=== PATIENT | female | born 1970 | race Caucasian/White ===

== ENCOUNTER 2023-05-13 10:08 | Inpatient (IN) | payer OTHER ==
--- NOTE | 2023-05-13 10:54 | ED ---
Chest Pain HPI - General Chief Complaint: Chest Pain Stated Complaint: Chest Pain Time Seen by Provider: 05/13/23 10:14 Source: patient Mode of arrival: ambulatory Limitations: no limitations - History of Present Illness Initial Comments: 52-year-old female with a past medical history significant for COPD and IV drug abuse last used 4 days ago (patient uses opioids). Patient states 3-4 days ago started to experience progressively worsening shortness of breath with associated fatigue. Today, patient was receiving a breathing treatment at [facility] when she developed acute onset of left-sided chest pain. Pain is sharp in nature and radiates to her back. After breathing treatment, patient was noted to be 93% on 4 L and sent to the ED for further evaluation. Patient denies fevers. Denies new rash. Denies abdominal pain. No other complaints. Pack-a-day smoker for the past 39 years. She was provided aspirin and nitro at [facility] which patient reports did not relieve her symptoms. - Related Data Home Medications Medication Instructions Recorded Confirmed Acetaminophen Tab [Tylenol] 650 mg PO Q4H PRN 05/13/23 05/13/23 Calcium/Magnesium/Zinc/Vitamin D 1 tab PO TID PRN 05/13/23 05/13/23 334/134/5mg Chlorpheniramine Maleate 4 mg PO Q4H PRN 05/13/23 05/13/23 [Chlor-Trimeton] Hyoscyamine Sulfate [Levsin] 0.125 mg PO QID PRN 05/13/23 05/13/23 Ibuprofen [Motrin Ib] 600 mg PO Q6H PRN 05/13/23 05/13/23 Loperamide HCl [Loperamide] 4 mg PO QID PRN 05/13/23 05/13/23 Multivitamins, Thera [Multivitamin 1 tab PO DAILY 05/13/23 05/13/23 (formulary)] Thiamine [Vitamin B-1] 100 mg PO DAILY 05/13/23 05/13/23 cloNIDine HCL [Catapres] 0.1 mg PO Q4H PRN 05/13/23 05/13/23 ondansetron HCL [Zofran] 8 mg PO Q6H PRN 05/13/23 05/13/23 traZODone HCL [Desyrel] 50 - 150 mg PO HS PRN 05/13/23 05/13/23 Allergies Allergy/AdvReac Type Severity Reaction Status Date / Time No Known Allergies Allergy Verified 05/13/23 15:00 Review of Systems ROS Statement: Those systems with pertinent positive or pertinent negative responses have been documented in the HPI. ROS Other: All systems not noted in ROS Statement are negative. Past Medical History Past Medical History: No Reported History, COPD History of Any Multi-Drug Resistant Organisms: None Reported Past Surgical History: No Surgical Hx Reported, Cholecystectomy Past Psychological History: No Psychological Hx Reported Smoking Status: Current every day smoker Past Alcohol Use History: None Reported Past Drug Use History: IV Drug Use General Exam Limitations: no limitations General appearance: alert, in no apparent distress, other (Cachectic) Neck exam: Present: normal inspection Respiratory exam: Present: other (CourseSounds bilaterally.) Cardiovascular Exam: Present: regular rate, normal rhythm GI/Abdominal exam: Present: soft Neurological exam: Present: alert, oriented X3 Skin exam: Present: warm, dry, other (No Osler nodes or Janeway lesions. Bilateral track parra.) Course Vital Signs 05/13/23 05/13/23 05/13/23 10:38 10:39 14:19 Temperature 98 F Pulse Rate 82 71 Pulse Rate [ 82 Pulse Oximetery ] Respiratory 18 18 Rate Blood Pressure 122/76 134/74 O2 Sat by Pulse 96 95 Oximetry - Reevaluation(s) Reevaluation #1: Patient noted painful nodes now located on her right hand and wrist. 05/13/23 14:27 Chest Pain MDM - MDM Was pt. sent in by a medical professional or institution (, PA, [employer]ER, urgent care, hospital, or fci...) When possible be specific @ -No Did you speak to anyone other than the patient for history (EMS, parent, family, police, friend...)? What history was obtained from this source @ -No Did you review nursing and triage notes (agree or disagree)? Why? @ -I reviewed and agree with nursing and triage notes Were old charts reviewed (outside hosp., previous admission, EMS record, old EKG, old radiological studies, urgent care reports/EKG's, fci records)? Report findings @ -No old charts were reviewed Differential Diagnosis (chest pain, altered mental status, abdominal pain women, abdominal pain men, vaginal bleeding, weakness, fever, dyspnea, syncope, headache, dizziness, GI bleed, back pain, seizure, CVA, palpatations, mental health, musculoskeletal)? @ -Differential Chest Pain: Stable Angina, Unstable Angina, STEMI, NSTEMI Aortic Dissection, Pneumothorax, Musculoskeletal, Esophageal Spasm GERD, Cholecystitis, Pancreatitis, Zoster, this is not meant to be an all-inclusive list. EKG interpreted by me (3pts min.). @ -EKG shows a sinus rhythm at [address] and T-wave changes. W[place] 130, QRS 101, QT/QTc 400/455. X-rays interpreted by me (1pt min.). @ -X-ray of the chest interpreted by me shows no acute process. CT interpreted by me (1pt min.). @ -CT chest interpreted by me shows no evidence of PE. U/S interpreted by me (1pt. min.). @ -None done What testing was considered but not performed or refused? (CT, X-rays, U/S, labs)? Why? @ -None What meds were considered but not given or refused? Why? @ -None Did you discuss the management of the patient with other professionals (professionals i.e. , PA, [employer]ER, lab, RT, psych nurse, social work professor, collar setter, teacher, budget officer, casework specialist)? Give summary @ -Case discussed with Dr. Holden, who accepts admission Was smoking cessation discussed for >3mins.? @ -No Was critical care preformed (if so, how long)? @ -No Were there social determinants of health that impacted care today? How? (Homelessness, low income, unemployed, alcoholism, drug addiction, transportation, low edu. Level, literacy, decrease access to med. care, usp, rehab)? @ -No Was there de-escalation of care discussed even if they declined (Discuss DNR or withdrawal of care, Hospice)? DNR status @ -No What co-morbidities impacted this encounter? (DM, HTN, Smoking, COPD, CAD, Cancer, CVA, ARF, Chemo, Hep., AIDS, mental health diagnosis, sleep apnea, morbid obesity)? @ -COPD, IV drug abuse Was patient admitted / discharged? Hospital course, mention meds given and route, prescriptions, significant lab abnormalities, going to OR and other pertinent info. @ -Admission 82-year-old female with a past medical history significant for IV drug abuse presenting to the ED with 2-3 days of fatigue and shortness of breath and 1 day of chest pain onset today. Laboratory studies significant for an elevated white blood cell count at 25.3, neutrophils elevated at 20.4, d-dimer elevated at 0.67, BUN 29, creatinine 0.42, lactic acid 2.4, initial troponin 0.034, second troponin 0.029, BNP 1700. Urine shows greater than 182 red blood cells. At this time, blood cultures pending. Patient will be admitted for empiric treatment of endocarditis. Consult placed to cardiology and infectious disease. Discussed plan of care with patient who is in agreement. Undiagnosed new problem with uncertain prognosis? @ -No Drug Therapy requiring intensive monitoring for toxicity (Heparin, Nitro, Insulin, Cardizem)? @ -No Were any procedures done? @ -No Diagnosis/symptom? @ -Chest pain Acute, or Chronic, or Acute on Chronic? @ -Acute Uncomplicated (without systemic symptoms) or Complicated (systemic symptoms)? @ -Uncomplicated Side effects of treatment? @ -No Exacerbation, Progression, or Severe Exacerbation? @ -No Poses a threat to life or bodily function? How? (Chest pain, [place], [place], pneumonia, PE, COPD, DKA, ARF, appy, cholecystitis, CVA, Diverticulitis, Homicidal, Suicidal, threat to staff... and all critical care pts) @ -No Disposition Clinical Impression: Chest pain Disposition: ADMITTED IP TO THIS HOSP Referrals: None,Stated [Primary Care Provider] - 1-2 days Time of Disposition: 15:55
[2023-05-13 11:20] LABS: Basophils % (A) 0 %; Eosinophils # (A) 0.1 k/uL (0-0.7); Eosinophils % (A) 0 %; Lymphocytes # (A) 3.1 k/uL (1.0-4.8); Lymphocytes % (A) 12 %; MCH 32.6 pg (25.0-35.0); MCHC 33.7 g/dL (31.0-37.0); MCV 96.7 fL (80.0-100.0); Mean Platelet Volume 8.8; Monocytes # (A) 1.3 k/uL (0-1.0); Monocytes % (A) 5 %; Neutrophils # (A) 20.4 k/uL (1.3-7.7); Neutrophils % (A) 81 %; Platelet Count 344 k/uL (150-450); RBC 5.83 m/uL (3.80-5.40); RDW 12.7 % (11.5-15.5); WBC 25.3 k/uL (3.8-10.6)
--- NOTE | 2023-05-13 11:25 | XR ---
EXAMINATION TYPE: XR chest 2V DATE OF EXAM: 05/13/2023 COMPARISON: NONE HISTORY: Shortness of breath TECHNIQUE: Frontal and lateral views of the chest are obtained. FINDINGS: Scattered senescent parenchymal changes noted. Hyperinflation compatible with COPD. No evidence for infiltrate. No evidence for atelectasis. Heart size is stable. Mediastinal structures are stable and grossly unremarkable. No evidence for hilar prominence. Degenerative changes dorsal spine. IMPRESSION: 1. No evidence for acute pulmonary disease.
[2023-05-13] MEDS ORDERED: ONDANSETRON 4 MG/2 ML VIAL IVP STA (11:57)
[2023-05-13 12:09] LABS: INR 1.1 (<1.2); Partial Thromboplastin Time 25.3 sec (22.0-30.0); Prothrombin Time 11.9 sec (10.0-12.5)
[2023-05-13 12:13] LABS: HCT 56.4 % (34.0-46.0)
[2023-05-13 12:53] LABS: ALT 17 U/L (4-34); AST 24 U/L (14-36); African American GFR (CKD) >90 (>60 ml/min/1.73 sqM); Albumin 4.4 g/dL (3.5-5.0); Alkaline Phosphatase 101 U/L (38-126); Anion Gap 16 mmol/L; Blood Urea Nitrogen 29 mg/dL (7-17); Carbon Dioxide 22 mmol/L (22-30); Chloride 102 mmol/L (98-107); Glucose 89 mg/dL (74-99); Magnesium 2.3 mg/dL (1.6-2.3); Non-African American GFR(CKD) >90 (>60 ml/min/1.73 sqM); Potassium 3.7 mmol/L (3.5-5.1); Sodium 140 mmol/L (137-145); Total Bilirubin 0.9 mg/dL (0.2-1.3); Total Protein 8.1 g/dL (6.3-8.2)
[2023-05-13 13:01] LABS: NT-Pro-B-Type Natriuretic Pept 1700 pg/mL
[2023-05-13] MEDS ORDERED: KETOROLAC 15 MG/ML 1 ML VIAL IVP STA (13:25)
[2023-05-13] MEDS ORDERED: SODIUM CHLORIDE 0.9% 1,000 ML IV STA (13:25)
[2023-05-13 13:56] LABS: Appearance,Urine Cloudy (Clear); Bilirubin,Urine Negative (Negative); Blood,Urine Small (Negative); Color,Urine Yellow; Glucose,Urine (UA) Negative (Negative); Ketones,Urine 3+ (Negative); Leukocyte Esterase,Urine Large (Negative); Mucus,Urine Many /hpf; Nitrite,Urine Negative (Negative); Protein,Urine 2+ (Negative); RBC,Urine 60 /hpf (0-5); Specific Gravity,Urine 1.034 (1.001-1.035); Squamous Epithelial Cell,Urine 4 /hpf (0-4); Urobilinogen,Urine <2.0 mg/dL (<2.0); WBC,Urine >182 /hpf (0-5)
--- NOTE | 2023-05-13 14:36 | CT ---
EXAMINATION TYPE: CT chest angio for PE DATE OF EXAM: 05/13/2023 COMPARISON: Radiograph same day HISTORY: 52 year-old female shortness of breath, elevated d-dimer, PE TECHNIQUE: Contiguous axial scanning of the chest performed with IV Contrast, patient injected with 6 5 mL of Isovue 370. Coronal/sagittal MIP reconstructions performed. CT DLP: 167.6 mGycm Automated exposure control for dose reduction was used. FINDINGS: The heart is normal size without pericardial effusion. No flattening of the interventricular septum o r reflux of contrast into the hepatic veins. Aorta normal caliber with conventional vessel branching anatomy. Mildly enlarged hilar lymph nodes measuring up to 1.4 cm. Extensive endobronchial opacification involving segmental and more distal lobar branches. Mild to moderate diffuse bronchial wall thickening. Moderate paraseptal and centrilobular emphysematous change particularly in the upper lungs. Tree-in-bud opacities left lung base. No germain finger in glove opacity is seen. No pleural effusion. Satisfactory opacification of the pulmonary arterial system Visualized upper abdomen shows thickening of the left adrenal gland without discrete nodularity. Bones: No osseous destructive process. IMPRESSION: 1. EXTENSIVE ENDOBRONCHIAL OPACIFICATION SEGMENTAL AND MORE DISTAL BRONCHI OF THE BILATERAL LOWER LOB ES. EXTENSIVE TREE-IN-BUD OPACITIES LEFT LOWER LOBE. CORRELATE FOR POSSIBLE ASPIRATION AND BRONCHIOLI TIS. THE PATIENT CAN BE FOLLOWED TO EXCLUDE ANY UNDERLYING MUCOCILIARY DYSFUNCTION. 2. COPD WITH MODERATE UPPER LUNG EMPHYSEMA. 3. SUSPECT REACTIVE BILATERAL HILAR LYMPH NODES MEASURING UP TO 1.4 CM. FOLLOW-UP CT IN 3 MONTHS TO E NSURE STABILITY/RESOLUTION. 4. NO EVIDENCE FOR PULMONARY EMBOLUS.
[2023-05-13] MEDS ORDERED: NALOXONE 0.4 MG/ML 1 ML VIAL IV PRN (16:00)
[2023-05-13] MEDS ORDERED: GENTAMICIN PER PHARMACY MISCELLANE PRN (16:10)
[2023-05-13] MEDS ORDERED: VANCOMYCIN IV PER PHARMACY 1 EACH MISC MISCELLANE PRN (16:10)
[2023-05-13] MEDS ORDERED: CIPROFLOXACIN/DEXTROSE PMX 400 MG in DEXTROSE/WATER 1 200ML.BAG IVPB STA (16:11)
[2023-05-13] MEDS ORDERED: VANCOMYCIN 750 MG in SODIUM CHLORIDE 0.9% 250 ML IVPB STA (16:12)
[2023-05-13] MEDS ORDERED: GENTAMICIN IVPB STA (16:19)
[2023-05-13] MEDS ORDERED: SODIUM CHLORIDE 0.9% IVPB STA (16:19)
[2023-05-13] MEDS: SODIUM CHLORIDE 0.9% 1,000 ML IV SCH (17:44)
[2023-05-13] MEDS: AMPICILLIN-SULBACTAM 3 GM in SODIUM CHLORIDE 0.9% 100 ML IVPB SCH (17:44)
[2023-05-13] MEDS: ACETAMINOPHEN TAB 325 MG TAB PO PRN (19:27)
[2023-05-13] MEDS ORDERED: traZODone HCL 50 MG TAB PO PRN (19:51)
[2023-05-13] MEDS: HEPARIN SODIUM,PORCINE 5,000 UNIT/ML 1 ML VIAL SQ SCH (20:28)
--- NOTE | 2023-05-13 21:53 | P.HPIM ---
History of Present Illness H&P Date: 05/13/23 Chief Complaint: Chest pain Patient is a 52-year-old female with a known history of COPD, IV drug use and currently everyday smoker was sent from [facility] due to complaints of shortness of breath and chest pain. Patient states that she has been short of breath and on and off sharp chest pain for the past 2 days. Patient was given breathing treatment and noted to have pulse ox 93% on 4 L oxygen via nasal cannula. Mainly left retrosternal and sometimes radiating to the back. She is also complaining of generalized weakness and tiredness for the past 5 days. She was given aspirin and sublingual nitro while at [facility]. Patient denies any fever. Complains of chills. Complains of nausea. No episodes of vomiting. No abdominal pain or diarrhea. No cough or sputum production. She did use last IV heroin on Thursday about 8:30 AM as per patient. She does smoke a pack a day for the past 39 years. Chest x-ray showed no evidence for acute pulmonary disease. EKG showed sinus rhythm with left atrial enlargement Laboratory data showed WBC 25.3 hemoglobin 19.0 and platelets 344. D-dimer 0.67 Lactic acid 2.4 and troponin 0.034 and 0.029 BUN 29 creatinine 0.42. Potassium 3.7. Urinalysis showed cloudy with 2+ protein 3+ ketones and large leukocyte esterase with elevated RBCs and WBCs. CTA chest showed extensive endobronchial opacification segmental and more distal bronchi of bilateral lower lobes. Extensive tree-in-bud opacities left lower lobe. Correlate for possible aspiration bronchiolitis. Patient can be ordered to exclude any underlying mucociliary dysfunction. COPD with moderate upper lung emphysema. Suspect reactive bilateral hilar lymph nodes measuring up to 1.4 cm follow-up CT in 3 months. She will stability/resolution. No evidence for PE. Review of Systems Constitutional: Patient denies any fever. Subjective chills . Generalized weakness and tiredness. Abdomen: Patient denied any nausea or vomiting or abd. pain Cardiovascular: Patient did complain of chest pain and short of breath no pal pitations. No leg swelling. Respiratory: patient denied any cough . no sputum production. No shortness of breath Neurologic: Patient denied any numbness or tingling headache. Musculoskeletal: Patient denies any complaints of joint swelling or deformity. Skin: Negative Psychiatric: Negative Endocrine: No heat or cold intolerance. No recent weight gain. Genitourinary: No dysuria or hematuria. All other 14 point ROS negative except the above Past Medical History Past Medical History: No Reported History, COPD History of Any Multi-Drug Resistant Organisms: None Reported Past Surgical History: No Surgical Hx Reported, Cholecystectomy Past Psychological History: No Psychological Hx Reported Smoking Status: Current every day smoker Past Alcohol Use History: None Reported Past Drug Use History: IV Drug Use Medications and Allergies Home Medications Medication Instructions Recorded Confirmed Type Acetaminophen Tab [Tylenol] 650 mg PO Q4H PRN 05/13/23 05/13/23 History Calcium/Magnesium/Zinc/Vitamin D 1 tab PO TID PRN 05/13/23 05/13/23 History 334/134/5mg Chlorpheniramine Maleate 4 mg PO Q4H PRN 05/13/23 05/13/23 History [Chlor-Trimeton] Hyoscyamine Sulfate [Levsin] 0.125 mg PO QID PRN 05/13/23 05/13/23 History Ibuprofen [Motrin Ib] 600 mg PO Q6H PRN 05/13/23 05/13/23 History Loperamide HCl [Loperamide] 4 mg PO QID PRN 05/13/23 05/13/23 History Multivitamins, Thera [Multivitamin 1 tab PO DAILY 05/13/23 05/13/23 History (formulary)] Thiamine [Vitamin B-1] 100 mg PO DAILY 05/13/23 05/13/23 History cloNIDine HCL [Catapres] 0.1 mg PO Q4H PRN 05/13/23 05/13/23 History ondansetron HCL [Zofran] 8 mg PO Q6H PRN 05/13/23 05/13/23 History traZODone HCL [Desyrel] 50 - 150 mg PO HS PRN 05/13/23 05/13/23 History Allergies Allergy/AdvReac Type Severity Reaction Status Date / Time No Known Allergies Allergy Verified 05/13/23 15:00 Physical Exam Vitals: Vital Signs Temp Pulse Pulse Resp BP Pulse Ox 05/13/23 19:00 84 16 136/74 97 05/13/23 14:19 71 18 134/74 95 05/13/23 10:39 98 F 82 18 122/76 96 05/13/23 10:38 82 Intake and Output 05/13/23 05/13/23 05/13/23 06:59 14:59 22:59 Other: Weight 40.823 kg PHYSICAL EXAMINATION: Patient is lying in the bed comfortably, no acute distress, awake alert and oriented.. HEENT: Normocephalic. Neck is supple. Pupils reactive. Nostrils clear. Oral cavity is moist. Neck reveals no JVD, carotid bruits, or thyromegaly. CHEST EXAMINATION: Trachea is central. Symmetrical expansion. Lung coughlin clear to auscultation and percussion. CARDIAC: Normal S1, S2 with no gallops. No murmurs ABDOMEN: Soft. Bowel sounds present. Nontender. No organomegaly. No abdominal bruits. Extremities: reveal no edema. Right forearm and right cubital skin wounds with prior IV needle markings. No purulent discharge. Tender to palpation. No clubbing or cyanosis Neurologically awake, alert, oriented x3 with well-coordinated movements. No focal deficits noted Skin: No rash or skin lesions. Psychiatric: Coperative. Nonsuicidal, anxious. Musculoskeletal: No joint swelling or deformity. Normal range of motion. Results CBC & Chem 7: 05/13/23 11:08 05/13/23 12:25 Labs: Abnormal Lab Results - Last 24 Hours (Table) 05/13/23 05/13/23 05/13/23 Range/Units 11:07 11:07 11:08 WBC 25.3 H (3.8-10.6) k/uL RBC 5.83 H (3.80-5.40) m/uL Hgb 19.0 H (11.4-16.0) gm/dL Hct 56.4 H (34.0-46.0) % Neutrophils # 20.4 H (1.3-7.7) k/uL Monocytes # 1.3 H (0-1.0) k/uL D-Dimer 0.67 H (<0.60) mg/L FEU BUN (7-17) mg/dL Creatinine (0.52-1.04) mg/dL Plasma Lactic Acid Tera 2.4 H* (0.7-2.0) mmol/L Urine Appearance (Clear) Urine Protein (Negative) Urine Ketones (Negative) Urine Blood (Negative) Ur Leukocyte Esterase (Negative) Urine RBC (0-5) /hpf Urine WBC (0-5) /hpf Urine Mucus (None) /hpf 05/13/23 05/13/23 Range/Units 12:25 13:17 WBC (3.8-10.6) k/uL RBC (3.80-5.40) m/uL Hgb (11.4-16.0) gm/dL Hct (34.0-46.0) % Neutrophils # (1.3-7.7) k/uL Monocytes # (0-1.0) k/uL D-Dimer (<0.60) mg/L FEU BUN 29 H (7-17) mg/dL Creatinine 0.42 L (0.52-1.04) mg/dL Plasma Lactic Acid Tera (0.7-2.0) mmol/L Urine Appearance Cloudy H (Clear) Urine Protein 2+ H (Negative) Urine Ketones 3+ H (Negative) Urine Blood Small H (Negative) Ur Leukocyte Esterase Large H (Negative) Urine RBC 60 H (0-5) /hpf Urine WBC >182 H (0-5) /hpf Urine Mucus Many H (None) /hpf Thrombosis Risk Factor Assmnt - DVT/VTE Prophylaxis DVT/VTE Prophylaxis: Pharmacologic Prophylaxis ordered Assessment and Plan Assessment: Chest pain and shortness of breath along with generalized weakness and tiredness. Suspect infective endocarditis with recent history of IVDU. Rule out ACS. Left lower lobe possible aspiration and bronchiolitis with extensive tree-in-bud opacities as per CTA chest. COPD Right forearm/upper extremity wounds with fibrosed veins. Possible urinary tract infection Elevated D-dimer level. CTA Heroin IV use Currently everyday smoker Moderate to severe protein calorie malnutrition DVT prophylaxis heparin subcu GI prophylaxis with Pepcid Plan: Patient will be continued on telemetry monitoring. Started antibiotics vancomycin and Unasyn and follow-up blood cultures. 2D echocardiogram was ordered. Serial EKG and troponin x3 to rule out ACS. DuoNeb inhalation as needed. Continue with IV hydration Cardiology and ID consult for further evaluation. Consult for smoking cessation and polysubstance abuse. Follow-up closely. Prognosis is guarded. Time with Patient: Greater than 30
--- NOTE | 2023-05-13 22:20 | P.CONS ---
History of Present Illness - Reason for Consult Consult date: 05/13/23 Rule out endocarditis Requesting physician: Ludin Taylor - Chief Complaint Shortness of breath and cough x few days - History of Present Illness patient is a 52-year-old female with a past medical history significant for IV drug use last use has been about 4 days ago patient has been sent to the ER from [place] for evaluation of increasing shortness of b reath that has been getting worse for the last 3 to 4 days and also has developed left-sided chest pain patient describing the pain to be sharp in nature almost 10 out of 10 in severity without any radiation with associated shortness of breath she did have mild cough but no sputum production patient complaining of nausea and vomiting but no abdominal pain or any diarrhea did have some chills but no high-grade fever patient on presentation to the hospital was afebrile patient did not have significant tachycardia hypotension or hypoxemia white count of 25.3 creatinine 0.42 liver exams are normal urine is positive patient did have a CT angiogram of the chest extensive endobronchial opacification segmental and more distal bronchi of the bilateral lower lobes correlate for possible aspiration and bronchiolitis no mention of any septic emboli patient was started on vancomycin gentamicin Cipro infectious disease was consulted with concern for possible endocarditis Review of Systems Positive point and negatives has been mentioned in the HPI, complete review of systems was performed and all other systems are negative Past Medical History Past Medical History: No Reported History, COPD History of Any Multi-Drug Resistant Organisms: None Reported Past Surgical History: No Surgical Hx Reported, Cholecystectomy Past Psychological History: No Psychological Hx Reported Smoking Status: Current every day smoker Past Alcohol Use History: None Reported Past Drug Use History: IV Drug Use Medications and Allergies Home Medications Medication Instructions Recorded Confirmed Type Acetaminophen Tab [Tylenol] 650 mg PO Q4H PRN 05/13/23 05/18/23 History Calcium/Magnesium/Zinc/Vitamin D 1 tab PO TID PRN 05/13/23 05/18/23 History 334/134/5mg Chlorpheniramine Maleate 4 mg PO Q4H PRN 05/13/23 05/18/23 History [Chlor-Trimeton] Hyoscyamine Sulfate [Levsin] 0.125 mg PO QID PRN 05/13/23 05/18/23 History Ibuprofen [Motrin Ib] 600 mg PO Q6H PRN 05/13/23 05/18/23 History Loperamide HCl [Loperamide] 4 mg PO QID PRN 05/13/23 05/18/23 History Multivitamins, Thera [Multivitamin 1 tab PO DAILY 05/13/23 05/18/23 History (formulary)] Thiamine [Vitamin B-1] 100 mg PO DAILY 05/13/23 05/18/23 History cloNIDine HCL [Catapres] 0.1 mg PO Q4H PRN 05/13/23 05/18/23 History ondansetron HCL [Zofran] 8 mg PO Q6H PRN 05/13/23 05/18/23 History traZODone HCL [Desyrel] 50 - 150 mg PO HS PRN 05/13/23 05/18/23 History Nitroglycerin Sl Tabs [Nitrostat] 0.4 mg SUBLINGUAL Q5M PRN 05/18/23 05/18/23 History ALPRAZolam [Xanax] 0.25 mg PO TID PRN #3 tab 05/21/23 Rx Amoxic-Pot Clav 875-125Mg 1 tab PO Q12HR 14 Days #28 tab 05/21/23 Rx [Augmentin 875-125] Budesonide-Formot 160-4.5 Mcg 2 puff INHALATION RT-BID 30 Days 05/21/23 Rx [Symbicort 160-4.5 Mcg Inhaler] #1 each Ipratropium/Albuter 20-100Mcg 1 puff INHALATION BID 30 Days #4 gm 05/21/23 Rx [Combivent Respimat 20-100Mcg Inhaler] Metoclopramide HCl [Reglan] 5 mg PO TID PRN #20 tablet 05/21/23 Rx Nicotine 21Mg/24Hr Patch [Habitrol] 1 patch TRANSDERM DAILY #30 patch 05/21/23 Rx Allergies Allergy/AdvReac Type Severity Reaction Status Date / Time No Known Allergies Allergy Verified 05/18/23 06:43 Physical Exam Vitals: Vital Signs Temp Pulse Pulse Resp BP Pulse Ox 05/13/23 19:00 84 16 136/74 97 05/13/23 14:19 71 18 134/74 95 05/13/23 10:39 98 F 82 18 122/76 96 05/13/23 10:38 82 Intake and Output 05/13/23 05/13/23 05/13/23 06:59 14:59 22:59 Other: Weight 40.823 kg GENERAL DESCRIPTION: Middle-aged male lying in bed, no distress. No tachypnea or accessory muscle of respiration use. HEENT: Shows Pallor , no scleral icterus. Oral mucous membrane is dry. No pharyngeal erythema or thrush NECK: Trachea central, no thyromegaly. LUNGS: Unlabored breathing. Coarse breath sounds bilaterally HEART: S1, S2, regular rate and rhythm. ABDOMEN: Soft, no tenderness , EXTREMITIES: No edema of feet. SKIN: No rash, no masses palpable. NEUROLOGICAL: The patient is awake, alert, oriented x3, mood and affect normal. Results CBC & Chem 7: 05/16/23 07:10 05/16/23 07:10 Labs: Abnormal Lab Results - Last 24 Hours (Table) 05/13/23 05/13/23 05/13/23 Range/Units 11:07 11:07 11:08 WBC 25.3 H (3.8-10.6) k/uL RBC 5.83 H (3.80-5.40) m/uL Hgb 19.0 H (11.4-16.0) gm/dL Hct 56.4 H (34.0-46.0) % Neutrophils # 20.4 H (1.3-7.7) k/uL Monocytes # 1.3 H (0-1.0) k/uL D-Dimer 0.67 H (<0.60) mg/L FEU BUN (7-17) mg/dL Creatinine (0.52-1.04) mg/dL Plasma Lactic Acid Tera 2.4 H* (0.7-2.0) mmol/L Urine Appearance (Clear) Urine Protein (Negative) Urine Ketones (Negative) Urine Blood (Negative) Ur Leukocyte Esterase (Negative) Urine RBC (0-5) /hpf Urine WBC (0-5) /hpf Urine Mucus (None) /hpf 05/13/23 05/13/23 Range/Units 12:25 13:17 WBC (3.8-10.6) k/uL RBC (3.80-5.40) m/uL Hgb (11.4-16.0) gm/dL Hct (34.0-46.0) % Neutrophils # (1.3-7.7) k/uL Monocytes # (0-1.0) k/uL D-Dimer (<0.60) mg/L FEU BUN 29 H (7-17) mg/dL Creatinine 0.42 L (0.52-1.04) mg/dL Plasma Lactic Acid Tera (0.7-2.0) mmol/L Urine Appearance Cloudy H (Clear) Urine Protein 2+ H (Negative) Urine Ketones 3+ H (Negative) Urine Blood Small H (Negative) Ur Leukocyte Esterase Large H (Negative) Urine RBC 60 H (0-5) /hpf Urine WBC >182 H (0-5) /hpf Urine Mucus Many H (None) /hpf Assessment and Plan (1) Pneumonia Status: Acute Code(s): J18.9 - PNEUMONIA, UNSPECIFIED ORGANISM SNOMED Code(s): 642381028 Plan: 1patient was in the hospital with acute left-sided chest pain also complaining of shortness of breath patient complaining of some nausea and vomiting did have significant normality on the CT angiogram of the chest with concern for possible aspiration pneumonia did not mention any septic emboli though the patient is a high risk for endocarditis because of her history of IV drug use but there was no mention of any septic emboli still endocarditis not entirely excluded 2-blood culture has been obtained we will check inflammatory markers 3-try to obtain sputum for Gram stain and culture 4-continue with the vancomycin however discontinue gentamicin and Cipro start the patient on Unasyn We will follow on clinical condition and cultures to further adjust medication if needed Thank you for this consultation we will follow the patient along with you Dictation was produced using [employer] dictation software. please excuse any grammatical, word or spelling errors. Time with Patient: Greater than 30
[2023-05-13] MEDS: FAMOTIDINE 20 MG TAB PO SCH (22:33)
[2023-05-14] MEDS ORDERED: GENTAMICIN IVPB SCH (02:00)
[2023-05-14] MEDS ORDERED: SODIUM CHLORIDE 0.9% IVPB SCH (02:00)
[2023-05-14] MEDS ORDERED: ACETAMINOPHEN TAB 325 MG TAB ONE (04:14)
[2023-05-14] MEDS ORDERED: CIPROFLOXACIN/DEXTROSE PMX 400 MG in DEXTROSE/WATER 1 200ML.BAG IVPB SCH (06:00)
[2023-05-14] MEDS: SODIUM CHLORIDE 0.9% 1,000 ML IV SCH ×2 (06:03→20:10)
[2023-05-14] MEDS: AMPICILLIN-SULBACTAM 3 GM in SODIUM CHLORIDE 0.9% 100 ML IVPB SCH ×5 (06:03→23:55)
[2023-05-14] MEDS: VANCOMYCIN 750 MG in SODIUM CHLORIDE 0.9% 250 ML IVPB SCH ×2 (08:03→20:08)
[2023-05-14 08:16] LABS: African American GFR (CKD) >90 (>60 ml/min/1.73 sqM); C Reactive Protein 5.1 mg/dL (<1.0); Non-African American GFR(CKD) >90 (>60 ml/min/1.73 sqM)
[2023-05-14] MEDS: HEPARIN SODIUM,PORCINE 5,000 UNIT/ML 1 ML VIAL SQ SCH ×2 (08:29→20:06)
[2023-05-14] MEDS: FAMOTIDINE 20 MG TAB PO SCH ×2 (08:30→20:07)
[2023-05-14] MEDS: THIAMINE 100 MG TAB PO SCH (08:30)
[2023-05-14] MEDS: MULTIVITAMINS, THERA 1 EACH TAB PO SCH (08:30)
[2023-05-14 09:15] VITALS: BMI 15.0
--- NOTE | 2023-05-14 09:46 | CA ---
Transthoracic Echo Report Name: Maribell Quintanilla Age: 52 Gender: F : 1970 Exam Date: 05/13/2023 15:00 Exam Location: [facility] Ht (in): 65 Wt (lb): 90 Ordering Physician: Ludin Taylor Attending/Referring Phys: Electrical Engineering Professor Sammie Guzman RDCS Procedure CPT: Indications: r/o endocarditis Cardiac Hx: Technical Quality: Good, Fair Contrast 1: Total Dose (mL): Contrast 2: Total Dose (mL): MEASUREMENTS (Male / Female) Normal Values 2D ECHO LV Diastolic Diameter PLAX 3.5 cm 4.2 - 5.9 / 3.9 - 5.3 cm LV Systolic Diameter PLAX 2.3 cm IVS Diastolic Thickness 1.0 cm 0.6 - 1.0 / 0.6 - 0.9 cm LVPW Diastolic Thickness 1.1 cm 0.6 - 1.0 / 0.6 - 0.9 cm LV Relative Wall Thickness 0.6 RV Internal Dim ED PLAX 2.9 cm LA Systolic Diameter LX 2.3 cm 3.0 - 4.0 / 2.7 - 3.8 cm LV Diastolic Volume MOD 4C 39.2 cm??? LV Systolic Volume MOD 4C 14.7 cm??? LV Ejection Fraction MOD 4C 62.6 % LV Cardiac Index MOD 4C 1616.8 cm???/min???m??? LV Diastolic Length 4C 7.3 cm LV Systolic Length 4C 6.4 cm LV Diastolic Volume MOD 2C 40.9 cm??? LV Systolic Volume MOD 2C 17.4 cm??? LV Ejection Fraction MOD 2C 57.5 % LV Cardiac Index MOD 2C 1550.2 cm???/min???m??? LV Diastolic Length 2C 8.1 cm LV Systolic Length 2C 6.6 cm LA Volume 27.2 cm??? 18 - 58 / 22 - 52 cm??? LA Volume Index 20.1 cm???/m??? 16 - 28 cm???/m??? M-MODE Aortic Root Diameter MM 2.5 cm MV E Point Septal Separation 0.1 cm AV Cusp Separation MM 1.9 cm DOPPLER AV Peak Velocity 154.3 cm/s AV Peak Gradient 9.5 mmHg MV Area PHT 2.6 cm??? Mitral E Point Velocity 62.1 cm/s Mitral A Point Velocity 80.4 cm/s Mitral E to A Ratio 0.8 MV Deceleration Time 297.2 ms FINDINGS Left Ventricle Left ventricular ejection fraction is estimated at 55-60 %. Small left ventricular cavity. Left ventricular wall thickness normal. Right Ventricle Normal right ventricular size. Unable to estimate the right ventricular systolic pressure. Right Atrium Normal right atrial size. Left Atrium Normal left atrial size. Mitral Valve Structurally normal mitral valve. No mitral stenosis, regurgitation or prolapse. Aortic Valve Trileaflet aortic valve. No aortic valve stenosis or regurgitation. Tricuspid Valve Structurally normal tricuspid valve. No tricuspid stenosis, regurgitation or prolapse. Pulmonic Valve Pulmonic valve not well visualized. Pericardium No pericardial effusion. Aorta Normal size aortic root and proximal ascending aorta. CONCLUSIONS Hyperdynamic LV Redundant mitral valve leaflets No intracardiac masses Previewed by: Dr. Chandana Mireles MD (Electronically Signed) Final Date: 14 May 2023 09:45
--- NOTE | 2023-05-14 09:53 | P.CRDCN ---
History of Present Illness History of present illness: HISTORY OF PRESENT ILLNESS: This is a 52-year-old female with a past medical history significant for nicotine dependence and IV drug abuse. Patient does not follow with a audit spec. We have been asked to see the patient in consultation for possible endocarditis. Patient examined at the bedside in the emergency room. The patient is currently at [facility] secondary to IV drug abuse. She reports that she last used heroin on Thursday morning. Patient was transferred to the hospital yesterday secondary to complaints of chest pain and shortness of breath. The patient states the pain is in the middle of her chest and radiates into her back. She also reports having shortness of breath. She states the pain is worse with deep inspiration. She denies any dizziness or lightheadedness. The patient was found to have leukocytosis with a white count of 25. Infectious disease was consulted and patient was placed on IV antibiotics. The patient also reports she has been having large amounts of green vaginal discharge with a foul odor for the past 3 weeks. She reports having unprotected sex. She denies any urinary symptoms. * EKG reveals sinus tachycardia with no signs of acute ischemia * Chest xray negative for acute process * Current home cardiac medications include Catapres 0.1 mg every 4 hours as needed. * Echocardiogram completed revealing ejection fraction 55-60% with no significant valvular abnormalities noted. No evidence of masses or veg etation. REVIEW OF SYSTEMS: At the time of my exam: CONSTITUTIONAL: Denies fever or chills. HEENT: Denies blurred vision, vision changes, or eye pain. Denies hemoptysis CARDIOVASCULAR: Denies chest pain. Denies orthopnea. Denies PND. Denies palpitations RESPIRATORY: Denies shortness of breath. GASTROINTESTINAL: Denies abdominal pain. Denies nausea or vomiting. HEMATOLOGIC: Denies bleeding disorders. GENITOURINARY: Denies any blood in urine. SKIN: Denies pruitis. Denies rash. PHYSICAL EXAM: VITAL SIGNS: Reviewed. GENERAL: Well-developed in no acute distress. HEENT: Head is normocephalic. Pupils are equal, round. Sclerae anicteric. Mucous membranes of the mouth are moist. Neck supple. No JVD or thyromegaly LUNGS: Respirations even and unlabored. Lungs essentially clear to auscultation bilaterally. HEART: Regular rate and rhythm. S1 and S2 heard. ABDOMEN: Soft. Nondistended. Nontender. EXTREMITIES: Normal range of motion. No clubbing or cyanosis. Peripheral pulses intact. No lower extremity edema NEUROLOGIC: Awake and alert. Oriented x 3. ASSESSMENT: Chest pain, pleuritic in nature, troponin negative 3 Leukocytosis IV drug abuse, patient last used heroin Thursday morning Nicotine dependence, patient smokes 1 pack per day Suspected STD, patient reports green vaginal discharge with foul order and recent unprotected sex PLAN: An acute coronary has been ruled out 2-D echo obtained and reviewed. No evidence of vegetation on transthoracic echo. Continue antibiotics per infectious disease No immediate plans for IFRAH. Will await results of blood cultures. Abstinence from drug use recommended Smoking cessation encouraged Further recommendations pending patient's course Nurse practitioner note has been reviewed by physician. Signing provider agrees with the documented findings, assessment, and plan of care. Past Medical History Past Medical History: No Reported History, COPD History of Any Multi-Drug Resistant Organisms: None Reported Past Surgical History: No Surgical Hx Reported, Cholecystectomy Past Psychological History: No Psychological Hx Reported Smoking Status: Current every day smoker Past Alcohol Use History: None Reported Past Drug Use History: IV Drug Use Medications and Allergies Home Medications Medication Instructions Recorded Confirmed Type Acetaminophen Tab [Tylenol] 650 mg PO Q4H PRN 05/13/23 05/13/23 History Calcium/Magnesium/Zinc/Vitamin D 1 tab PO TID PRN 05/13/23 05/13/23 History 334/134/5mg Chlorpheniramine Maleate 4 mg PO Q4H PRN 05/13/23 05/13/23 History [Chlor-Trimeton] Hyoscyamine Sulfate [Levsin] 0.125 mg PO QID PRN 05/13/23 05/13/23 History Ibuprofen [Motrin Ib] 600 mg PO Q6H PRN 05/13/23 05/13/23 History Loperamide HCl [Loperamide] 4 mg PO QID PRN 05/13/23 05/13/23 History Multivitamins, Thera [Multivitamin 1 tab PO DAILY 05/13/23 05/13/23 History (formulary)] Thiamine [Vitamin B-1] 100 mg PO DAILY 05/13/23 05/13/23 History cloNIDine HCL [Catapres] 0.1 mg PO Q4H PRN 05/13/23 05/13/23 History ondansetron HCL [Zofran] 8 mg PO Q6H PRN 05/13/23 05/13/23 History traZODone HCL [Desyrel] 50 - 150 mg PO HS PRN 05/13/23 05/13/23 History Allergies Allergy/AdvReac Type Severity Reaction Status Date / Time No Known Allergies Allergy Verified 05/13/23 15:00 Physical Exam Vitals: Vital Signs Temp Pulse Pulse Resp BP Pulse Ox 05/14/23 06:33 60 18 121/69 93 L 05/13/23 19:00 84 16 136/74 97 05/13/23 14:19 71 18 134/74 95 05/13/23 10:39 98 F 82 18 122/76 96 05/13/23 10:38 82 Results 05/13/23 11:08 05/14/23 07:04 Cardiac Enzymes 05/13/23 05/13/23 05/13/23 Range/Units 11:07 12:25 14:20 AST 24 (14-36) U/L Troponin I 0.034 0.029 (0.000-0.034) ng/mL 05/13/23 05/13/23 Range/Units 17:45 20:22 AST (14-36) U/L Troponin I 0.028 0.028 (0.000-0.034) ng/mL Coagulation 05/13/23 Range/Units 11:07 PT 11.9 (10.0-12.5) sec APTT 25.3 (22.0-30.0) sec CBC 05/13/23 Range/Units 11:08 WBC 25.3 H (3.8-10.6) k/uL RBC 5.83 H (3.80-5.40) m/uL Hgb 19.0 H (11.4-16.0) gm/dL Hct 56.4 H (34.0-46.0) % Plt Count 344 (150-450) k/uL Comprehensive Metabolic Panel 05/13/23 05/14/23 Range/Units 12:25 07:04 Sodium 140 (137-145) mmol/L Potassium 3.7 (3.5-5.1) mmol/L Chloride 102 (98-107) mmol/L Carbon Dioxide 22 (22-30) mmol/L BUN 29 H (7-17) mg/dL Creatinine 0.42 L 0.35 L (0.52-1.04) mg/dL Glucose 89 (74-99) mg/dL Calcium 10.0 (8.4-10.2) mg/dL AST 24 (14-36) U/L ALT 17 (4-34) U/L Alkaline Phosphatase 101 (38-126) U/L Total Protein 8.1 (6.3-8.2) g/dL Albumin 4.4 (3.5-5.0) g/dL Current Medications Generic Name Dose Route Start Last Admin Trade Name Freq PRN Reason Stop Dose Admin Acetaminophen 650 mg 05/13/23 16:00 05/13/23 19:27 Acetaminophen Tab 325 Mg Tab PO 650 mg Q6HR PRN Administration Mild Pain or Fever > 100.5 Albuterol/Ipratropium 3 ml 05/13/23 21:49 Ipratropium-Albuterol 3 Ml Neb INHALATION RT-QID PRN Shortness Of Breath Or Wheezing Famotidine 20 mg 05/13/23 22:00 05/13/23 22:33 Famotidine 20 Mg Tab PO 20 mg BID RICO Administration Heparin Sodium (Porcine) 5,000 unit 05/13/23 21:00 05/13/23 20:28 Heparin Sodium,Porcine 5,000 Unit/Ml 1 Ml Vial SQ Not Given Q12HR RICO Sodium Chloride 1,000 mls @ 75 mls/hr 05/13/23 16:00 05/14/23 06:03 Saline 0.9% IV Not Given .[id number] RICO Vancomycin HCl 750 mg/ Sodium 250 mls @ 125 mls/hr 05/14/23 06:00 05/14/23 08:03 Chloride IVPB 125 mls/hr Q12H RICO Administration Ampicillin Sodium/Sulbactam 100 mls @ 200 mls/hr 05/13/23 18:00 05/14/23 06:31 Sodium 3 gm/ Sodium Chloride IVPB 200 mls/hr Q6HR RICO Administration Protocol Multivitamins 1 each 05/14/23 09:00 Multivitamins, Thera 1 Each Tab PO DAILY RICO Naloxone HCl 0.2 mg 05/13/23 16:00 Naloxone 0.4 Mg/Ml 1 Ml Vial IV Q2M PRN Opioid Reversal Thiamine HCl 100 mg 05/14/23 09:00 Thiamine 100 Mg Tab PO DAILY RICO Trazodone HCl 50 mg 05/13/23 19:51 Trazodone Hcl 50 Mg Tab PO HS PRN Insomnia 05/13/23 11:08 05/14/23 07:04
[2023-05-14] MEDS: ACETAMINOPHEN TAB 325 MG TAB PO PRN ×2 (12:55→20:07)
--- NOTE | 2023-05-14 14:05 | P.PN ---
Subjective Progress Note Date: 05/14/23 Patient is a 52-year-old female with a known history of COPD, IV drug use and currently everyday smoker was sent from [place] due to complaints of shortness of breath and chest pain. Patient states that she has been short of breath and on and off sharp chest pain for the past 2 days. Patient was given breathing treatment and noted to have pulse ox 93% on 4 L oxygen via nasal cannula. Mainly left retrosternal and sometimes radiating to the back. She is also complaining of generalized weakness and tiredness for the past 5 days. She was given aspirin and sublingual nitro while at [place] re[facility]. Patient denies any fever. Complains of chills. Complains of nausea. No episodes of vomiting. No abdominal pain or diarrhea. No cough or sputum production. She did use last IV heroin on Thursday about 8:30 AM as per patient. She does smoke a pack a day for the past 39 years. Chest x-ray showed no evidence for acute pulmonary disease. EKG showed sinus rhythm with left atrial enlargement Laboratory data showed WBC 25.3 hemoglobin 19.0 and platelets 344. D-dimer 0.67 Lactic acid 2.4 and troponin 0.034 and 0.029 BUN 29 creatinine 0.42. Potassium 3.7. Urinalysis showed cloudy with 2+ protein 3+ ketones and large leukocyte esterase with elevated RBCs and WBCs. CTA chest showed extensive endobronchial opacification segmental and more distal bronchi of bilateral lower lobes. Extensive tree-in-bud opacities left lower lobe. Correlate for possible aspiration bronchiolitis. Patient can be ordered to exclude any underlying mucociliary dysfunction. COPD with moderate upper lung emphysema. Suspect reactive bilateral hilar lymph nodes measuring up to 1.4 cm follow-up CT in 3 months. She will stability/resolution. No evidence for PE. 05/14. Patient seen and examined. Patient complaining of odorous vaginal discharge, greenish colored. Patient stated that she has been having the discharge for the last 4 weeks, admits to unprotected sexual intercourse REVIEW OF SYSTEMS: CONSTITUTIONAL: No fever, complaining of generalized body aches CARDIOVASCULAR: No chest pain, no palpitations, no syncope. PULMONARY: No shortness of breath, no cough, GASTROINTESTINAL: No diarrhea, no nausea, no vomiting, no abdominal pain. NEUROLOGICAL: No headaches, no weakness, PHYSICAL EXAMINATION: GENERAL: The patient is alert and oriented x3, not in any acute distress. Well developed, well nourished. HEENT: Pupils are round and equally reacting to light. EOMI. No scleral icterus. No conjunctival pallor. Normocephalic, atraumatic. No pharyngeal erythema. No thyromegaly. CARDIOVASCULAR: S1 and S2 present. No murmurs, rubs, or gallops. PULMONARY: Chest is clear to auscultation, no wheezing or crackles. ABDOMEN: Soft, nontender, nondistended, normoactive bowel sounds. No palpable organomegaly. MUSCULOSKELETAL: No joint swelling or deformity. EXTREMITIES: No cyanosis, clubbing, or pedal edema. NEUROLOGICAL: Gross neurological examination did not reveal any focal deficits. SKIN: No rashes. Assessment and plan Chest pain and shortness of breath along with generalized weakness and tiredness. Suspect infective endocarditis with recent history of IVDU. Left lower lobe possible aspiration and bronchiolitis with extensive tree-in-bud opacities as per CTA chest. COPD Right forearm/upper extremity wounds with fibrosed veins. Possible urinary tract infection Vagina discharge Heroin IV use Currently everyday smoker Moderate to severe protein calorie malnutrition DVT prophylaxis heparin subcu GI prophylaxis with Pepcid Plan: Monitor vital signs Monitor CBC Monitor CMP Follow-up on blood cultures Echo done, showed no evidence of any vegetations Continue IV Unasyn and vancomycin DuoNeb inhalation as needed. We will check for STD with Chlamydia and Neisseria Cardiology following ID following Labs and medication were reviewed.. Continue same treatment. Continue with symptomatic treatment. Resume home medication. Monitor labs and vitals. DVT and GI prophylaxis. Further recommendations as per clinical course of the patient Dictation was produced using [employer] dictation software. please excuse any grammatical, word or spelling errors. Objective - Vital Signs Vital signs: Vital Signs Temp 98 F 05/13/23 10:39 Pulse 69 05/14/23 09:06 Resp 20 05/14/23 09:06 BP 115/57 05/14/23 09:06 Pulse Ox 97 05/14/23 09:06 FiO2 Intake & Output 05/13/23 05/14/23 05/14/23 18:59 06:59 18:59 Weight 40.823 kg 40.823 kg - Labs CBC & Chem 7: 05/13/23 11:08 05/14/23 07:04 Labs: Abnormal Lab Results - Last 24 Hours (Table) 05/13/23 05/13/23 05/13/23 Range/Units 11:07 11:07 11:08 WBC 25.3 H (3.8-10.6) k/uL RBC 5.83 H (3.80-5.40) m/uL Hgb 19.0 H (11.4-16.0) gm/dL Hct 56.4 H (34.0-46.0) % Neutrophils # 20.4 H (1.3-7.7) k/uL Monocytes # 1.3 H (0-1.0) k/uL D-Dimer 0.67 H (<0.60) mg/L FEU BUN (7-17) mg/dL Creatinine (0.52-1.04) mg/dL Plasma Lactic Acid Tera 2.4 H* (0.7-2.0) mmol/L C-Reactive Protein (<1.0) mg/dL Urine Appearance (Clear) Urine Protein (Negative) Urine Ketones (Negative) Urine Blood (Negative) Ur Leukocyte Esterase (Negative) Urine RBC (0-5) /hpf Urine WBC (0-5) /hpf Urine Mucus (None) /hpf 05/13/23 05/13/23 05/14/23 Range/Units 12:25 13:17 07:04 WBC (3.8-10.6) k/uL RBC (3.80-5.40) m/uL Hgb (11.4-16.0) gm/dL Hct (34.0-46.0) % Neutrophils # (1.3-7.7) k/uL Monocytes # (0-1.0) k/uL D-Dimer (<0.60) mg/L FEU BUN 29 H (7-17) mg/dL Creatinine 0.42 L 0.35 L (0.52-1.04) mg/dL Plasma Lactic Acid Tera (0.7-2.0) mmol/L C-Reactive Protein 5.1 H (<1.0) mg/dL Urine Appearance Cloudy H (Clear) Urine Protein 2+ H (Negative) Urine Ketones 3+ H (Negative) Urine Blood Small H (Negative) Ur Leukocyte Esterase Large H (Negative) Urine RBC 60 H (0-5) /hpf Urine WBC >182 H (0-5) /hpf Urine Mucus Many H (None) /hpf
--- NOTE | 2023-05-14 16:38 | P.PN ---
Subjective Progress Note Date: 05/14/23 Principal diagnosis: Aspiration pneumonia and question of endocarditis patient is a 52-year-old female with a past medical history significant for IV drug use last use has been about 4 days before presentation to the hospital patient has been sent to the ER from [place] for evaluation of increasing shortness of breath and chest pain CT of the chest did shows exte nsive pneumonia. On today's evaluation that is 05/14/2023, the patient denies any fever or any chills, the patient is breathing comfortably on room air and no need for supplemental oxygen , the patient chest pain and cough has decreased in intensity, patient denies abdominal pain, no nausea/vomiting and no diarrhea has been reported White count of 25.3 as of yesterday creatinine 0.35, cultures pending Objective - Vital Signs Vital signs: Vital Signs Temp 99.2 F 05/14/23 11:26 Pulse 74 05/14/23 11:26 Resp 16 05/14/23 11:26 BP 130/74 05/14/23 11:26 Pulse Ox 96 05/14/23 11:26 FiO2 Intake & Output 05/13/23 05/14/23 05/14/23 18:59 06:59 18:59 Weight 40.823 kg 40.823 kg - Exam GENERAL DESCRIPTION: Middle-aged female lying in bed in no distress RESPIRATORY SYSTEM: Unlabored breathing , decreased breath sounds at bases HEART: S1 S2 regular rate and rhythm , ABDOMEN: Soft , no tenderness EXTREMITIES: No edema feet - Labs CBC & Chem 7: 05/13/23 11:08 05/14/23 07:04 Labs: Abnormal Lab Results - Last 24 Hours (Table) 05/13/23 05/13/23 05/13/23 Range/Units 11:07 11:07 11:08 WBC 25.3 H (3.8-10.6) k/uL RBC 5.83 H (3.80-5.40) m/uL Hgb 19.0 H (11.4-16.0) gm/dL Hct 56.4 H (34.0-46.0) % Neutrophils # 20.4 H (1.3-7.7) k/uL Monocytes # 1.3 H (0-1.0) k/uL D-Dimer 0.67 H (<0.60) mg/L FEU BUN (7-17) mg/dL Creatinine (0.52-1.04) mg/dL Plasma Lactic Acid Tera 2.4 H* (0.7-2.0) mmol/L C-Reactive Protein (<1.0) mg/dL Procalcitonin (0.02-0.09) ng/mL Urine Appearance (Clear) Urine Protein (Negative) Urine Ketones (Negative) Urine Blood (Negative) Ur Leukocyte Esterase (Negative) Urine RBC (0-5) /hpf Urine WBC (0-5) /hpf Urine Mucus (None) /hpf 05/13/23 05/13/23 05/14/23 Range/Units 12:25 13:17 07:04 WBC (3.8-10.6) k/uL RBC (3.80-5.40) m/uL Hgb (11.4-16.0) gm/dL Hct (34.0-46.0) % Neutrophils # (1.3-7.7) k/uL Monocytes # (0-1.0) k/uL D-Dimer (<0.60) mg/L FEU BUN 29 H (7-17) mg/dL Creatinine 0.42 L (0.52-1.04) mg/dL Plasma Lactic Acid Tera (0.7-2.0) mmol/L C-Reactive Protein (<1.0) mg/dL Procalcitonin 0.23 H (0.02-0.09) ng/mL Urine Appearance Cloudy H (Clear) Urine Protein 2+ H (Negative) Urine Ketones 3+ H (Negative) Urine Blood Small H (Negative) Ur Leukocyte Esterase Large H (Negative) Urine RBC 60 H (0-5) /hpf Urine WBC >182 H (0-5) /hpf Urine Mucus Many H (None) /hpf 05/14/23 Range/Units 07:04 WBC (3.8-10.6) k/uL RBC (3.80-5.40) m/uL Hgb (11.4-16.0) gm/dL Hct (34.0-46.0) % Neutrophils # (1.3-7.7) k/uL Monocytes # (0-1.0) k/uL D-Dimer (<0.60) mg/L FEU BUN (7-17) mg/dL Creatinine 0.35 L (0.52-1.04) mg/dL Plasma Lactic Acid Tera (0.7-2.0) mmol/L C-Reactive Protein 5.1 H (<1.0) mg/dL Procalcitonin (0.02-0.09) ng/mL Urine Appearance (Clear) Urine Protein (Negative) Urine Ketones (Negative) Urine Blood (Negative) Ur Leukocyte Esterase (Negative) Urine RBC (0-5) /hpf Urine WBC (0-5) /hpf Urine Mucus (None) /hpf Assessment and Plan (1) Pneumonia Current Visit: Yes Status: Acute Code(s): J18.9 - PNEUMONIA, UNSPECIFIED ORGANISM SNOMED Code(s): 417914015 Plan: 1patient was in the hospital with acute left-sided chest pain also complaining of shortness of breath patient complaining of some nausea and vomiting did have significant normality on the CT angiogram of the chest with concern for possible aspiration pneumonia did not mention any septic emboli though the patient is a high risk for endocarditis because of her history of IV drug use but there was no mention of any septic emboli still endocarditis not entirely excluded 2-blood culture has been obtained which are currently pending, patient did have a CRP of 5.1 and the pro-calcitonin of 0.23 3-try to obtain sputum for Gram stain and culture 4-patient to continue with the vancomycin and Unasyn while waiting for the cultures to finalize Dictation was produced using [employer] dictation software. please excuse any grammatical, word or spelling errors. Time with Patient: Less than 30
[2023-05-14] MEDS: NICOTINE 7MG/24HR PATCH TRANSDERM SCH (18:41)
[2023-05-15] MEDS: ACETAMINOPHEN TAB 325 MG TAB PO PRN ×3 (03:53→21:26)
[2023-05-15] MEDS ORDERED: VANCOMYCIN TROUGH DUE 1 EACH MISC MISCELLANE ONE (05:00)
[2023-05-15] MEDS: AMPICILLIN-SULBACTAM 3 GM in SODIUM CHLORIDE 0.9% 100 ML IVPB SCH ×4 (05:02→23:51)
[2023-05-15] MEDS: VANCOMYCIN 750 MG in SODIUM CHLORIDE 0.9% 250 ML IVPB SCH (05:56)
[2023-05-15] MEDS ORDERED: ONDANSETRON 4 MG/2 ML VIAL IVP PRN (06:03)
[2023-05-15 06:06] LABS: African American GFR (CKD) >90 (>60 ml/min/1.73 sqM); Non-African American GFR(CKD) >90 (>60 ml/min/1.73 sqM)
[2023-05-15] MEDS: SODIUM CHLORIDE 0.9% 1,000 ML IV SCH (08:09)
[2023-05-15] MEDS: MULTIVITAMINS, THERA 1 EACH TAB PO SCH (08:10)
[2023-05-15] MEDS: HEPARIN SODIUM,PORCINE 5,000 UNIT/ML 1 ML VIAL SQ SCH ×2 (08:10→20:01)
[2023-05-15] MEDS: THIAMINE 100 MG TAB PO SCH (08:10)
[2023-05-15] MEDS: IPRATROPIUM-ALBUTEROL 3 ML NEB INHALATION PRN ×3 (08:16→15:21)
[2023-05-15] MEDS: FAMOTIDINE 20 MG TAB PO SCH ×2 (08:19→20:01)
[2023-05-15] MEDS: NICOTINE 7MG/24HR PATCH TRANSDERM SCH (08:19)
[2023-05-15 08:59] LABS: Basophils # (A) 0.05 X 10*3/uL (0.00-0.10); Basophils % (A) 0.3 %; Eosinophils # (A) 0.01 X 10*3/uL (0.04-0.35); Eosinophils % (A) 0.1 %; HCT 45.6 % (37.2-46.3); HGB 15.7 d/dL (12.0-15.0); Lymphocytes # (A) 2.52 X 10*3/uL (0.90-5.00); Lymphocytes % (A) 13.7 %; MCH 31.5 pg (27.0-32.0); MCHC 34.4 d/dL (32.0-37.0); MCV 91.6 FL (80.0-97.0); Mean Platelet Volume 11.4 FL (9.5-12.2); Monocytes # (A) 1.07 X 10*3/uL (0.20-1.00); Monocytes % (A) 5.8 %; NRBC Per 100 WBC 0 X 10*3/uL (0.00-0.01); Neutrophils # (A) 14.62 X 10*3/uL (1.80-7.70); Neutrophils % (A) 79.4 %; Platelet Count 340 X 10*3/uL (140-440); RBC 4.98 X 10*6/uL (4.10-5.20); RDW 12.8 % (11.5-14.5)
[2023-05-15 09:13] LABS: ALT 10 U/L (8-44); AST 14 U/L (13-35); Albumin 3.7 d/dL (3.8-4.9); Albumin/Globulin Ratio 1.37 Ratio (1.60-3.17); Alkaline Phosphatase 93 U/L (41-126); BUN/Creat Ratio 22.67 Ratio (12.00-20.00); Blood Urea Nitrogen 6.8 mg/dL (9.0-27.0); Calcium 8.8 mg/dL (8.7-10.3); Carbon Dioxide 24.3 mmol/L (21.6-31.8); Chloride 100 mmol/L (96-109); Globulin 2.7 d/dL (1.6-3.3); Glucose 98 mg/dL (70-110); Potassium 2.9 mmol/L (3.5-5.5); Sodium 139 mmol/L (135-145); Total Bilirubin 0.4 mg/dL (0.3-1.2); Total Protein 6.4 d/dL (6.2-8.2)
[2023-05-15] MEDS ORDERED: Potassium Replacement Protocol 1 EACH MISC MISCELLANE PRN (10:05)
[2023-05-15 10:11] LABS: Chlamydia trachomatis rRNA Not detected; Neisseria gonorrhoeae rRNA Not detected
[2023-05-15] MEDS: POTASSIUM CHLORIDE ER 20 MEQ TAB.ER PO SCH ×3 (12:32→15:13)
--- NOTE | 2023-05-15 13:03 | P.PN ---
Subjective Progress Note Date: 05/15/23 Patient is a 52-year-old female with a known history of COPD, IV drug use and currently everyday smoker was sent from [place] due to complaints of shortness of breath and chest pain. Patient states that she has been short of breath and on and off sharp chest pain for the past 2 days. Patient was given breathing treatment and noted to have pulse ox 93% on 4 L oxygen via nasal cannula. Mainly left retrosternal and sometimes radiating to the back. She is also complaining of generalized weakness and tiredness for the past 5 days. She was given aspirin and sublingual nitro while at [place] [facility]. Patient denies any fever. Complains of chills. Complains of nausea. No episodes of vomiting. No abdominal pain or diarrhea. No cough or sputum production. She did use last IV heroin on Thursday about 8:30 AM as per patient. She does smoke a pack a day for the past 39 years. Chest x-ray showed no evidence for acute pulmonary disease. EKG showed sinus rhythm with left atrial enlargement Laboratory data showed WBC 25.3 hemoglobin 19.0 and platelets 344. D-dimer 0.67 Lactic acid 2.4 and troponin 0.034 and 0.029 BUN 29 creatinine 0.42. Potassium 3.7. Urinalysis showed cloudy with 2+ protein 3+ ketones and large leukocyte esterase with elevated RBCs and WBCs. CTA chest showed extensive endobronchial opacification segmental and more distal bronchi of bilateral lower lobes. Extensive tree-in-bud opacities left lower lobe. Correlate for possible aspiration bronchiolitis. Patient can be ordered to exclude any underlying mucociliary dysfunction. COPD with moderate upper lung emphysema. Suspect reactive bilateral hilar lymph nodes measuring up to 1.4 cm follow-up CT in 3 months. She will stability/resolution. No evidence for PE. 05/14. Patient seen and examined. Patient complaining of odorous vaginal discharge, greenish colored. Patient stated that she has been having the discharge for the last 4 weeks, admits to unprotected sexual intercourse 05/15. Patient seen and examined. Potassium this morning is 2.8, and replacement ordered. No acute issues overnight. Vital signs stable REVIEW OF SYSTEMS: CONSTITUTIONAL: No fever, complaining of generalized body aches CARDIOVASCULAR: No chest pain, no palpitations, no syncope. PULMONARY: No shortness of breath, no cough, GASTROINTESTINAL: No diarrhea, no nausea, no vomiting, no abdominal pain. NEUROLOGICAL: No headaches, no weakness, PHYSICAL EXAMINATION: GENERAL: The patient is alert and oriented x3, not in any acute distress. Well developed, well nourished. HEENT: Pupils are round and equally reacting to light. EOMI. No scleral icterus. No conjunctival pallor. Normocephalic, atraumatic. No pharyngeal erythema. No thyromegaly. CARDIOVASCULAR: S1 and S2 present. No murmurs, rubs, or gallops. PULMONARY: Chest is clear to auscultation, no wheezing or crackles. ABDOMEN: Soft, nontender, nondistended, normoactive bowel sounds. No palpable organomegaly. MUSCULOSKELETAL: No joint swelling or deformity. EXTREMITIES: No cyanosis, clubbing, or pedal edema. NEUROLOGICAL: Gross neurological examination did not reveal any focal deficits. SKIN: No rashes. Assessment and plan Chest pain and shortness of breath along with generalized weakness and tiredness. Suspect infective endocarditis with recent history of IVDU. Left lower lobe possible aspiration and bronchiolitis with extensive tree-in-bud opacities as per CTA chest. COPD Right forearm/upper extremity wounds with fibrosed veins. Possible urinary tract infection Vagina discharge Heroin IV use Currently everyday smoker Moderate to severe protein calorie malnutrition Plan: Monitor vital signs Monitor CBC Monitor CMP Follow-up on blood cultures Echo done, showed no evidence of any vegetations Potassium this morning is 2.8, replacement ordered Continue IV Unasyn and vancomycin DuoNeb inhalation as needed. We will check for STD with Chlamydia and Neisseria Cardiology following ID following Labs and medication were reviewed.. Continue same treatment. Continue with sy mptomatic treatment. Resume home medication. Monitor labs and vitals. DVT and GI prophylaxis. Further recommendations as per clinical course of the patient Dictation was produced using [employer] dictation software. please excuse any grammatical, word or spelling errors. Objective - Vital Signs Vital signs: Vital Signs Temp 98.3 F 05/15/23 06:53 Pulse 77 05/15/23 08:29 Resp 16 05/15/23 06:53 BP 141/68 05/15/23 06:53 Pulse Ox 92 L 05/15/23 06:53 FiO2 Intake & Output 05/14/23 05/15/23 05/15/23 18:59 06:59 18:59 Intake Total 1850 Balance 1850 Weight 40.823 kg 42 kg Intake: Intake, IV Titration 1350 Amount Ampicillin-Sulbactam 3 gm 200 In Sodium Chloride 0.9% 100 ml @ 200 mls/hr IVPB Q6HR [facility] Rx#:[id number] Sodium Chloride 0.9% 1, 900 000 ml @ 75 mls/hr IV . [id number] [facility] Rx#:[id number] Vancomycin 750 mg In 250 Sodium Chloride 0.9% 250 ml @ 125 mls/hr IVPB Q12H [facility] Rx#:[id number] Oral 500 Other: Voiding Method Toilet Diaper # Voids 1 # Bowel Movements 1 - Labs CBC & Chem 7: 05/15/23 05:44 05/15/23 05:44 Labs: Abnormal Lab Results - Last 24 Hours (Table) 05/14/23 05/15/23 05/15/23 Range/Units 07:04 05:44 05:44 WBC 18.40 H (4.50-10.00) X 10*3/uL Hgb 15.7 H (12.0-15.0) d/dL Neutrophils # 14.62 H (1.80-7.70) X 10*3/uL Monocytes # 1.07 H (0.20-1.00) X 10*3/uL Eosinophils # 0.01 L (0.04-0.35) X 10*3/uL Potassium 2.9 L (3.5-5.5) mmol/L Anion Gap 14.70 H (4.00-12.00) mmol/L BUN 6.8 L (9.0-27.0) mg/dL Creatinine 0.3 L (0.6-1.5) mg/dL BUN/Creatinine Ratio 22.67 H (12.00-20.00) Ratio Albumin 3.7 L (3.8-4.9) d/dL Albumin/Globulin Ratio 1.37 L (1.60-3.17) Ratio Procalcitonin 0.23 H (0.02-0.09) ng/mL 05/15/23 Range/Units 05:44 WBC (4.50-10.00) X 10*3/uL Hgb (12.0-15.0) d/dL Neutrophils # (1.80-7.70) X 10*3/uL Monocytes # (0.20-1.00) X 10*3/uL Eosinophils # (0.04-0.35) X 10*3/uL Potassium (3.5-5.5) mmol/L Anion Gap (4.00-12.00) mmol/L BUN (9.0-27.0) mg/dL Creatinine 0.31 L (0.6-1.5) mg/dL BUN/Creatinine Ratio (12.00-20.00) Ratio Albumin (3.8-4.9) d/dL Albumin/Globulin Ratio (1.60-3.17) Ratio Procalcitonin (0.02-0.09) ng/mL Microbiology - Last 24 Hours (Table) 05/13/23 17:45 Blood Culture - Preliminary Blood 05/13/23 12:25 Blood Culture - Preliminary Blood
[2023-05-15] MEDS ORDERED: VANCOMYCIN 750 MG in SODIUM CHLORIDE 0.9% 250 ML IVPB SCH (14:00)
--- NOTE | 2023-05-15 16:55 | P.PN ---
Subjective Progress Note Date: 05/15/23 Principal diagnosis: Aspiration pneumonia and question of endocarditis patient is a 52-year-old female with a past medical history significant for IV drug use last use has been about 4 days before presentation to the hospital patient has been sent to the ER from [place] for evaluation of increasing shortness of breath and chest pain CT of the chest did shows exte nsive pneumonia. On today's evaluation that is 05/15/2023, the patient remains to be afebrile the patient is breathing comfortably on room air without need for supplemental oxygen, the patient denies chest pain, shortness of breath or cough, patient denies nausea/vomiting , no diarrhea and no abdominal pain White count is down to 18.40, creatinine 0.31 cultures are pending Objective - Vital Signs Vital signs: Vital Signs Temp 98.3 F 05/15/23 11:50 Pulse 71 05/15/23 11:50 Resp 16 05/15/23 11:50 BP 142/69 05/15/23 11:50 Pulse Ox 93 L 05/15/23 11:50 FiO2 Intake & Output 05/14/23 05/15/23 05/15/23 18:59 06:59 18:59 Intake Total 1850 Balance 1850 Weight 40.823 kg 42 kg Intake: Intake, IV Titration 1350 Amount Ampicillin-Sulbactam 3 gm 200 In Sodium Chloride 0.9% 100 ml @ 200 mls/hr IVPB Q6HR [facility] Rx#:[id number] Sodium Chloride 0.9% 1, 900 000 ml @ 75 mls/hr IV . [id number] [facility] Rx#:[id number] Vancomycin 750 mg In 250 Sodium Chloride 0.9% 250 ml @ 125 mls/hr IVPB Q12H [facility] Rx#:[id number] Oral 500 Other: Voiding Method Toilet Toilet Diaper Diaper # Voids 1 # Bowel Movements 1 - Exam GENERAL DESCRIPTION: Middle-aged female lying in bed in no distress RESPIRATORY SYSTEM: Unlabored breathing , decreased breath sounds at bases HEART: S1 S2 regular rate and rhythm , ABDOMEN: Soft , no tenderness EXTREMITIES: No edema feet - Labs CBC & Chem 7: 05/15/23 05:44 05/15/23 05:44 Labs: Abnormal Lab Results - Last 24 Hours (Table) 05/15/23 05/15/23 05/15/23 Range/Units 05:44 05:44 05:44 WBC 18.40 H (4.50-10.00) X 10*3/uL Hgb 15.7 H (12.0-15.0) d/dL Neutrophils # 14.62 H (1.80-7.70) X 10*3/uL Monocytes # 1.07 H (0.20-1.00) X 10*3/uL Eosinophils # 0.01 L (0.04-0.35) X 10*3/uL Potassium 2.9 L (3.5-5.5) mmol/L Anion Gap 14.70 H (4.00-12.00) mmol/L BUN 6.8 L (9.0-27.0) mg/dL Creatinine 0.3 L 0.31 L (0.6-1.5) mg/dL BUN/Creatinine Ratio 22.67 H (12.00-20.00) Ratio Albumin 3.7 L (3.8-4.9) d/dL Albumin/Globulin Ratio 1.37 L (1.60-3.17) Ratio Microbiology - Last 24 Hours (Table) 05/13/23 17:45 Blood Culture - Preliminary Blood 05/13/23 12:25 Blood Culture - Preliminary Blood Assessment and Plan (1) Pneumonia Current Visit: Yes Status: Acute Code(s): J18.9 - PNEUMONIA, UNSPECIFIED ORGANISM SNOMED Code(s): 094917356 Plan: 1patient was in the hospital with acute left-sided chest pain also complaining of shortness of breath patient complaining of some nausea and vomiting did have significant normality on the CT angiogram of the chest with concern for possible aspiration pneumonia did not mention any septic emboli though the patient is a high risk for endocarditis because of her history of IV drug use but there was no mention of any septic emboli still endocarditis not entirely excluded 2-blood culture has been obtained which are currently pending, patient did have a CRP of 5.1 and the pro-calcitonin of 0.23 3- sputum for Gram stain and culture not collected yet 4-patient to continue with Unasyn however we'll discontinue vancomycin while waiting for the cultures to finalize Dictation was produced using [employer] dictation software. please excuse any grammatical, word or spelling errors. Time with Patient: Less than 30
[2023-05-16 03:14] VITALS: RESP 16
[2023-05-16] MEDS: ACETAMINOPHEN TAB 325 MG TAB PO PRN (03:29)
[2023-05-16] MEDS: AMPICILLIN-SULBACTAM 3 GM in SODIUM CHLORIDE 0.9% 100 ML IVPB SCH ×2 (05:15→11:57)
[2023-05-16 08:42] LABS: Basophils % (A) 0 %; Eosinophils % (A) 0 %; HCT 45.8 % (34.0-46.0); Lymphocytes # (A) 2.7 k/uL (1.0-4.8); Lymphocytes % (A) 21 %; MCH 31.5 pg (25.0-35.0); MCHC 32.4 g/dL (31.0-37.0); MCV 97.3 fL (80.0-100.0); Mean Platelet Volume 9.5; Monocytes # (A) 0.7 k/uL (0-1.0); Monocytes % (A) 5 %; Neutrophils # (A) 9.1 k/uL (1.3-7.7); Neutrophils % (A) 71 %; Platelet Count 343 k/uL (150-450); RBC 4.71 m/uL (3.80-5.40); RDW 12.6 % (11.5-15.5); WBC 12.8 k/uL (3.8-10.6)
[2023-05-16 08:45] LABS: ALT 12 U/L (4-34); AST 19 U/L (14-36); African American GFR (CKD) >90 (>60 ml/min/1.73 sqM); Albumin 3.4 g/dL (3.5-5.0); Albumin/Globulin Ratio 1.1; Alkaline Phosphatase 75 U/L (38-126); Anion Gap 10 mmol/L; Blood Urea Nitrogen 11 mg/dL (7-17); Calcium 8.8 mg/dL (8.4-10.2); Carbon Dioxide 22 mmol/L (22-30); Chloride 105 mmol/L (98-107); Glucose 100 mg/dL (74-99); Non-African American GFR(CKD) >90 (>60 ml/min/1.73 sqM); Potassium 3.6 mmol/L (3.5-5.1); Sodium 137 mmol/L (137-145); Total Bilirubin 0.6 mg/dL (0.2-1.3); Total Protein 6.4 g/dL (6.3-8.2)
[2023-05-16 08:48] LABS: HGB 14.8 gm/dL (11.4-16.0)
[2023-05-16] MEDS: FAMOTIDINE 20 MG TAB PO SCH (09:50)
[2023-05-16] MEDS: NICOTINE 7MG/24HR PATCH TRANSDERM SCH (09:50)
[2023-05-16] MEDS: HEPARIN SODIUM,PORCINE 5,000 UNIT/ML 1 ML VIAL SQ SCH (09:50)
[2023-05-16] MEDS: MULTIVITAMINS, THERA 1 EACH TAB PO SCH (09:50)
[2023-05-16] MEDS: THIAMINE 100 MG TAB PO SCH (09:50)
--- NOTE | 2023-05-16 13:06 | P.DS ---
Providers Date of admission: 05/13/23 16:27 Expected date of discharge: 05/16/23 Attending physician: Lamar Holden Consults: 05/13/23 16:00 Consult Physician Urgent Consulting Provider: [facility] Consult Reason/Comments: r/o endocarditis Do you want consulting provider notified?: Yes Consult Physician Urgent Consulting Provider: Becky Wing Consult Reason/Comments: r/o endocarditis Do you want consulting provider notified?: Yes Primary care physician: Stated None Hospital Course: Discharge diagnoses; Chest pain and shortness of breath along with generalized weakness and tiredness. infective endocarditis ruled out Left lower lobe possible aspiration and bronchiolitis with extensive tree-in-bud opacities as per CTA chest. COPD Right forearm/upper extremity wounds with fibrosed veins. Possible urinary tract infection Vagina discharge Heroin IV use Currently everyday smoker Moderate to severe protein calorie malnutrition Hospital course; Patient is a 52-year-old female with a known history of COPD, IV drug use and currently everyday smoker was sent from [place] due to complaints of shortness of breath and chest pain. Patient states that she has been short of breath and on and off sharp chest pain for the past 2 days. Patient was given breathing treatment and noted to have pulse ox 93% on 4 L oxygen via nasal cannula. Mainly left retrosternal and sometimes radiating to the back. She is also complaining of generalized weakness and tiredness for the past 5 days. She was given aspirin and sublingual nitro while at [place] [facility]. Patient denies any fever. Complains of chills. Complains of nausea. No episodes of vomiting. No abdominal pain or diarrhea. No cough or sputum production. She did use last IV heroin on Thursday about 8:30 AM as per patient. She does smoke a pack a day for the past 39 years. Chest x-ray showed no evidence for acute pulmonary disease. EKG showed sinus rhythm with left atrial enlargement Laboratory data showed WBC 25.3 hemoglobin 19.0 and platelets 344. D-dimer 0.67 Lactic acid 2.4 and troponin 0.034 and 0.029 BUN 29 creatinine 0.42. Potassium 3.7. Urinalysis showed cloudy with 2+ protein 3+ ketones and large leukocyte esterase with elevated RBCs and WBCs. CTA chest showed extensive endobronchial opacification segmental and more distal bronchi of bilateral lower lobes. Extensive tree-in-bud opacities left lower lobe. Correlate for possible aspiration bronchiolitis. Patient can be ordered to exclude any underlying mucociliary dysfunction. COPD with moderate upper lung emphysema. Suspect reactive bilateral hilar lymph nodes measuring up to 1.4 cm follow-up CT in 3 months. She will stability/resolution. No evidence for PE. 05/14. Patient seen and examined. Patient complaining of odorous vaginal discharge, greenish colored. Patient stated that she has been having the discharge for the last 4 weeks, admits to unprotected sexual intercourse 05/15. Patient seen and examined. Potassium this morning is 2.8, and replacement ordered. No acute issues overnight. Vital signs stable 05/16. Patient seen and examined. Patient continues to be afebrile. WBC this morning is 12.8, hemoglobin 14.8, sodium 137 potassium 3.6, BUN 11, creatinine 0.31. Discuss with ID, patient wants to go home and doesn't want to stay in the hospital any longer, ID recommended discharging patient on Augmentin for one week PHYSICAL EXAMINATION: GENERAL: The patient is alert and oriented x3, not in any acute distress. Well developed, well nourished. HEENT: Pupils are round and equally reacting to light. EOMI. No scleral icterus. No conjunctival pallor. Normocephalic, atraumatic. No pharyngeal erythema. No thyromegaly. CARDIOVASCULAR: S1 and S2 present. No murmurs, rubs, or gallops. PULMONARY: Chest is clear to auscultation, no wheezing or crackles. ABDOMEN: Soft, nontender, nondistended, normoactive bowel sounds. No palpable organomegaly. MUSCULOSKELETAL: No joint swelling or deformity. EXTREMITIES: No cyanosis, clubbing, or pedal edema. NEUROLOGICAL: Gross neurological examination did not reveal any focal deficits. SKIN: No rashes. Dictation was produced using [employer] dictation software. please excuse any grammatical, word or spelling errors. Plan - Discharge Summary Discharge Rx Participant: No New Discharge Prescriptions: New Amoxic-Pot Clav 875-125Mg [Augmentin 875-125] 1 tab PO Q12HR 7 Days #14 tab Continue Thiamine [Vitamin B-1] 100 mg PO DAILY Multivitamins, Thera [Multivitamin (formulary)] 1 tab PO DAILY Hyoscyamine Sulfate [Levsin] 0.125 mg PO QID PRN PRN Reason: ABDOMINAL SPASMS Loperamide HCl [Loperamide] 4 mg PO QID PRN PRN Reason: Diarrhea Calcium/Magnesium/Zinc/Vitamin D 334/134/5mg 1 tab PO TID PRN PRN Reason: muscle cramps ondansetron HCL [Zofran] 8 mg PO Q6H PRN PRN Reason: Nausea And Vomiting Acetaminophen Tab [Tylenol] 650 mg PO Q4H PRN PRN Reason: Pain traZODone HCL [Desyrel] 50 - 150 mg PO HS PRN PRN Reason: Insomnia Ibuprofen [Motrin Ib] 600 mg PO Q6H PRN PRN Reason: Pain Chlorpheniramine Maleate [Chlor-Trimeton] 4 mg PO Q4H PRN PRN Reason: Allergy Symptoms cloNIDine HCL [Catapres] 0.1 mg PO Q4H PRN PRN Reason: Anxiety Discharge Medication List Acetaminophen Tab [Tylenol] 650 mg PO Q4H PRN 05/13/23 [History] Calcium/Magnesium/Zinc/Vitamin D 334/134/5mg 1 tab PO TID PRN 05/13/23 [History] Chlorpheniramine Maleate [Chlor-Trimeton] 4 mg PO Q4H PRN 05/13/23 [History] Hyoscyamine Sulfate [Levsin] 0.125 mg PO QID PRN 05/13/23 [History] Ibuprofen [Motrin Ib] 600 mg PO Q6H PRN 05/13/23 [History] Loperamide HCl [Loperamide] 4 mg PO QID PRN 05/13/23 [History] Multivitamins, Thera [Multivitamin (formulary)] 1 tab PO DAILY 05/13/23 [History] Thiamine [Vitamin B-1] 100 mg PO DAILY 05/13/23 [History] cloNIDine HCL [Catapres] 0.1 mg PO Q4H PRN 05/13/23 [History] ondansetron HCL [Zofran] 8 mg PO Q6H PRN 05/13/23 [History] traZODone HCL [Desyrel] 50 - 150 mg PO HS PRN 05/13/23 [History] Amoxic-Pot Clav 875-125Mg [Augmentin 875-125] 1 tab PO Q12HR 7 Days #14 tab 05/16/23 [Rx] Follow up Appointment(s)/Referral(s): [facility] [Outside] - As Needed None,Stated [Primary Care Provider] - 1-2 days Becky Wing MD [STAFF PHYSICIAN] - 1 Week Discharge Disposition: HOME SELF-CARE
[2023-05-16] MEDS ORDERED: LOPERAMIDE 2 MG CAP PO STA (13:31)
[2023-05-16 14:05] VITALS: BP 127/53; PULSE 64; TEMP 97.8
--- NOTE | 2023-05-19 09:38 | CDI ---
Documentation Clarification Form Date: 05/19/2023 From: Bea Hudson Admit Date: 05/13/2023 04:27:00 PM Patient Name: Maribell Quintanilla Visit Number: [id number] Discharge Date: 05/16/2023 03:10:00 PM ATTENTION: The Clinical Documentation Specialists (CDI) and [facility] Coding Staff appreciate your assistance in clarifying documentation. Please respond to the clarification below the line at the bottom and electronically sign. The CDI & [facility] Coding staff will review the response and follow-up if needed. Please note: Queries are made part of the Legal Health Record. If you have any questions, please contact the author of this message via ITS. Dr. Thomas Nichole, Conflicting documentation has been found in the medical record. As attending physician, please provide clarification. Per H&P. PNs & DS documentation states Moderate tosevere protein calorie malnutrition History/Risk Factors: HX of IV drug use currently at [facility], smokes a pack a day for the last 39 years, COPD & emphysema, currently with aspiration pneumonia Clinical Indicators: Per Dietary: underweight @ 40.823 kg, ideal weight 56.699 kg, BMI 15.0 Albumin: 4.4, 3.7, 3.4 Total Protein: 8.1, 6.4, 6.4 Treatment: Increase caloric expenditure, catabolic illness, likely insufficient kcal Please clarify which diagnosis is most appropriate: [ ] Moderate protein calorie malnutrition [ x ] Severe protein calorie malnutrition [ ] Other (please specify) [ ] Unable to determine MTDD
--- NOTE | 2023-05-20 12:28 | CDI ---
Documentation Clarification Form Date: 05/20/2023 12:17:36 PM From: Naz Barber RN, CCDS Email: [email or web address] Admit Date: 05/13/2023 04:27:00 PM Patient Name: Maribell Quintanilla Visit Number: [id number] Discharge Date: 05/16/2023 03:10:00 PM ATTENTION: The Clinical Documentation Specialists (CDI) and [facility] Coding Staff appreciate your assistance in clarifying documentation. Please respond to the clarification below the line at the bottom and electronically sign. The CDI & [facility] Coding staff will review the response and follow-up if needed. Please note: Queries are made part of the Legal Health Record. If you have any questions, please contact the author of this message via ITS. Dr. Lamar Holden Your patient has malnutrition. Based on this information and the findings below, is there an additional diagnosis that is clinically appropriate for this patient? Patient history/risk factors: COPD, IV Heroin use, smoker. Presented with SOB and CP. Admitted with aspiration pneumonia. Clinical Indicators: ED: "alert, in no apparent distress, other Cachectic." Discharge summary: "Moderate to severe protein calorie malnutrition." BMI 15.0 Weight 40kg Treatment: Regular diet, assess needs for oral supplementation, daily multivitamin 05/14 RD: "Underweight related to increased caloric expenditure, catabolic illness, likely insufficient kcal." Is there an additional diagnosis that is clinically appropriate for this patient? [ x ] Cachexia [ ] No additional diagnosis/Not clinically significant [ ] Unable to determine [ ] Other, please specify MTDD
--- NOTE | 2023-05-22 13:17 | P.PN ---
Subjective Progress Note Date: 05/16/23 Principal diagnosis: Aspiration pneumonia and question of endocarditis patient is a 52-year-old female with a past medical history significant for IV drug use last use has been about 4 days before presentation to the hospital patient has been sent to the ER from [place] for evaluation of increasing shortness of breath and chest pain CT of the chest did shows exte nsive pneumonia. On today's evaluation that is 05/16/2023, the patient denies any fever or any chills, the patient is breathing comfortably on room air , the patient denies chest pain, shortness of breath and no significant cough, patient denies abdominal pain, no nausea/vomiting or diarrhea White count is down to 12.8, creatinine 0.31 cultures are negative so far Objective - Vital Signs Vital signs: Vital Signs Temp 98.4 F 05/16/23 08:00 Pulse 60 05/16/23 08:00 Resp 16 05/16/23 08:00 BP 110/67 05/16/23 08:00 Pulse Ox 94 L 05/16/23 08:00 FiO2 Intake & Output 05/15/23 05/16/23 05/16/23 18:59 06:59 18:59 Intake Total 1050 1700 236 Balance 1050 1700 236 Weight 42 kg Intake: Intake, IV Titration 1050 1100 Amount Ampicillin-Sulbactam 3 gm 200 200 In Sodium Chloride 0.9% 100 ml @ 200 mls/hr IVPB Q6HR [facility] Rx#:[id number] Sodium Chloride 0.9% 1, 600 900 000 ml @ 75 mls/hr IV . [id number] [facility] Rx#:[id number] Vancomycin 750 mg In 250 Sodium Chloride 0.9% 250 ml @ 125 mls/hr IVPB Q8H [facility] Rx#:[id number] Oral 600 236 Other: Voiding Method Toilet Toilet Diaper Diaper # Voids 3 - Exam GENERAL DESCRIPTION: Middle-aged female lying in bed in no distress RESPIRATORY SYSTEM: Unlabored breathing , decreased breath sounds at bases HEART: S1 S2 regular rate and rhythm , ABDOMEN: Soft , no tenderness EXTREMITIES: No edema feet - Labs CBC & Chem 7: 05/16/23 07:10 05/16/23 07:10 Labs: Abnormal Lab Results - Last 24 Hours (Table) 05/16/23 05/16/23 Range/Units 07:10 07:10 WBC 12.8 H (3.8-10.6) k/uL Neutrophils # 9.1 H (1.3-7.7) k/uL Creatinine 0.31 L (0.52-1.04) mg/dL Glucose 100 H (74-99) mg/dL Albumin 3.4 L (3.5-5.0) g/dL Microbiology - Last 24 Hours (Table) 05/15/23 09:47 Gram Stain - Preliminary Sputum 05/13/23 17:45 Blood Culture - Preliminary Blood 05/13/23 12:25 Blood Culture - Preliminary Blood 05/14/23 09:59 Urine Culture - Final Urine,Clean Catch Assessment and Plan (1) Pneumonia Status: Acute Code(s): J18.9 - PNEUMONIA, UNSPECIFIED ORGANISM SNOMED Code(s): 916124449 Plan: 1patient was in the hospital with acute left-sided chest pain also complaining of shortness of breath patient complaining of some nausea and vomiting did have significant normality on the CT angiogram of the chest with concern for possible aspiration pneumonia did not mention any septic emboli though the patient is a high risk for endocarditis because of her history of IV drug use but there was no mention of any septic emboli still endocarditis not entirely excluded 2-blood culture has been obtained which are currently pending, patient did have a CRP of 5.1 and the pro-calcitonin of 0.23 3- sputum for Gram stain and culture not collected yet 4-patient seemed to have shown clinical improvement and the patient white count is trending down, patient advised to stay in the hospital to continue with Unasyn because of extensive pneumonia however the patient says she can not stay any further in the hospital and will sign out AMA patient has been reluctantly discharged on oral Augmentin as per discussion with the admitting team Dictation was produced using Dr[employer] dictation software. please excuse any grammatical, word or spelling errors. Time with Patient: Less than 30
== END 2023-05-16 15:10 | disposition other institution (70) | DRG 137 ==
LOC: EC 10:08 → 3SCARD 16:27 → 4SSUR 05-14 11:23 → 5NMEDONC 05-14 18:17
PROVIDERS: ADMIT Internal Medicine; ATTEND Internal Medicine
DX: J69.0 Pneumonitis due to inhalation of food and vomit (principal); E43 Unspecified severe protein-calorie malnutrition; F11.10 Opioid abuse, uncomplicated; R64 Cachexia; J43.9 Emphysema, unspecified; Z68.1 Body mass index [BMI] 19.9 or less, adult; J21.9 Acute bronchiolitis, unspecified; N39.0 Urinary tract infection, site not specified; Z28.310 Unvaccinated for COVID-19; I51.7 Cardiomegaly; N89.8 Other specified noninflammatory disorders of vagina; F17.210 Nicotine dependence, cigarettes, uncomplicated; Z79.899 Other long term (current) drug therapy; Z71.6 Tobacco abuse counseling; Z71.51 Drug abuse counseling and surveillance of drug abuser; Z71.3 Dietary counseling and surveillance
CPT/HCPCS: 36415; 71046; 71275; 80053; 80202; 81001; 82565; 83605; 83735; 83880; 84145; 84484; 85025; 85379; 85610; 85652; 85730; 86140; 87040; 87070; 87086; 87205; 87491; 87591; 87661; 93005; 93306; 94640; 96361; 96365; 96366; 96375; 99285

== ENCOUNTER 2023-05-17 20:32 | Inpatient (IN) | payer OTHER ==
--- NOTE | 2023-05-17 20:43 | ED ---
Chest Pain HPI - General Stated Complaint: weakness Time Seen by Provider: 05/17/23 20:43 - History of Present Illness Initial Comments: Mraibell is a 52-year-old female with a history of IV drug abuse who was recently admitted to the hospital for chest pain and concern for endocarditis, she had a negative workup and was discharged yesterday however she's had persistent heaviness and pain in her chest. She was discharged on oral antibiotics due to concern for phlebitis from IV drug abuse however patient states that she took one dose and he gave her stomach upset so she hasn't taken any additional doses. Patient reports that she is progressively feeling worse and 36 hours and she's been discharged she decided back to the hospital. - Related Data Home Medications Medication Instructions Recorded Confirmed Acetaminophen Tab [Tylenol] 650 mg PO Q4H PRN 05/13/23 05/13/23 Calcium/Magnesium/Zinc/Vitamin D 1 tab PO TID PRN 05/13/23 05/13/23 334/134/5mg Chlorpheniramine Maleate 4 mg PO Q4H PRN 05/13/23 05/13/23 [Chlor-Trimeton] Hyoscyamine Sulfate [Levsin] 0.125 mg PO QID PRN 05/13/23 05/13/23 Ibuprofen [Motrin Ib] 600 mg PO Q6H PRN 05/13/23 05/13/23 Loperamide HCl [Loperamide] 4 mg PO QID PRN 05/13/23 05/13/23 Multivitamins, Thera [Multivitamin 1 tab PO DAILY 05/13/23 05/13/23 (formulary)] Thiamine [Vitamin B-1] 100 mg PO DAILY 05/13/23 05/13/23 cloNIDine HCL [Catapres] 0.1 mg PO Q4H PRN 05/13/23 05/13/23 ondansetron HCL [Zofran] 8 mg PO Q6H PRN 05/13/23 05/13/23 traZODone HCL [Desyrel] 50 - 150 mg PO HS PRN 05/13/23 05/13/23 Previous Rx's Medication Instructions Recorded Amoxic-Pot Clav 875-125Mg 1 tab PO Q12HR 7 Days #14 tab 05/16/23 [Augmentin 875-125] Allergies Allergy/AdvReac Type Severity Reaction Status Date / Time No Known Allergies Allergy Verified 05/17/23 20:54 Review of Systems ROS Statement: Those systems with pertinent positive or pertinent negative responses have been documented in the HPI. ROS Other: All systems not noted in ROS Statement are negative. EKG Findings - EKG Comments: EKG Findings:: EKG interpreted by me, EKG obtained due to complaint of chest pain, EKG obtained at 2, rate is 66 rhythm is sinus. Normal axis, normal intervals OH 116, QRS evening QTC [address] elevations or depressions no evidence of acute ischemia or infarction. When compared to EKG earlier this week is not a significant change in morphology. Past Medical History Past Medical History: COPD Additional Past Medical History / Comment(s): smoker, hx substance abuse - heroin, cocaine History of Any Multi-Drug Resistant Organisms: None Reported Past Surgical History: No Surgical Hx Reported, Cholecystectomy Past Psychological History: No Psychological Hx Reported Smoking Status: Current every day smoker Past Alcohol Use History: None Reported Past Drug Use History: IV Drug Use, Marijuana General Exam - General Exam Comments Initial Comments: Physical Exam GENERAL: Chronically ill appearing, appears older than stated age HENT: Normocephalic, Atraumatic EYES: PERRL, EOMI PULMONARY: Unlabored respirations CARDIOVASCULAR: RRR Warm and well perfused extremities ABDOMEN: Non-distended SKIN: Lesions on arms from IV drug abuse : Deferred NEUROLOGIC: Alert and oriented MUSCULOSKELETAL: Moving all extremities with no apparent injury PSYCHIATRIC: No SI/HI Course Vital Signs 05/17/23 20:36 Temperature 98.0 F Pulse Rate 75 Respiratory 19 Rate Blood Pressure 114/70 O2 Sat by Pulse 92 L Oximetry Chest Pain MDM - MDM Was pt. sent in by a medical professional or institution (, PA, [employer] P[employer]ER, urgent care, hospital, or [place] health [place] facility...) When possible be specific @ -No Did you speak to anyone other than the patient for history (EMS, parent, family, police, friend...)? What history was obtained from this source @ -No Did you review nursing and triage notes (agree or disagree)? Why? @ -I reviewed and agree with nursing and triage notes Were old charts reviewed (outside hosp., previous admission, EMS record, old EKG, old radiological studies, urgent care reports/EKG's, [place] health care facility records)? Report findings @ -Previous admission notes, echo, CTA results were reviewed Differential Diagnosis (chest pain, altered mental status, abdominal pain women, abdominal pain men, vaginal bleeding, weakness, fever, dyspnea, syncope, headache, dizziness, GI bleed, back pain, seizure, CVA, palpatations, mental health, musculoskeletal)? @ -Differential Chest Pain: Stable Angina, Unstable Angina, STEMI, NSTEMI Aortic Dissection, Pneumothorax, Musculoskeletal, Esophageal Spasm GERD, Cholecystitis, Pancreatitis, Zoster, this is not meant to be an all-inclusive list. EKG interpreted by me (3pts min.). @ -As above X-rays interpreted by me (1pt min.). @ -None done CT interpreted by me (1pt min.). @ -None done U/S interpreted by me (1pt. min.). @ -None done What testing was considered but not performed or refused? (CT, X-rays, U/S, labs)? Why? @ -CTA - was completed earlier this week What meds were considered but not given or refused? Why? @ -Narcotics were held due to patient being in rehab Did you discuss the management of the patient with other professionals (professionals i.e. , PA, F[employer] P[employer]ER, lab, RT, psych nurse, school social worker, energy conservation technician, teacher, upscale security officer, case making machine operator)? Give summary @ -Dr Nichole Was smoking cessation discussed for >3mins.? @ -No Was critical care preformed (if so, how long)? @ -No Were there social determinants of health that impacted care today? How? (Homelessness, low income, unemployed, alcoholism, drug addiction, transportation, low edu. Level, literacy, decrease access to med. care, longterm, rehab)? @ -Drug abuse Was there de-escalation of care discussed even if they declined (Discuss DNR or withdrawal of care, Hospice)? DNR status @ -No What co-morbidities impacted this encounter? (DM, HTN, Smoking, COPD, CAD, Cancer, CVA, ARF, Chemo, Hep., AIDS, mental health diagnosis, sleep apnea, morbid obesity)? @ -None Was patient admitted / discharged? Hospital course, mention meds given and route, prescriptions, significant lab abnormalities, going to OR and other pertinent info. @ -Admit Patient was seen and evaluated, history was obtained from patient. Review of medical record. Patient with persistent nausea and vomiting inability tolerate her oral antibiotics. Patient has persistent chest pain shortness breath and generalized fatigue. Not able to participate in activities at rehab. Patients lipase elevated, patient with persistent nausea. Considering co-morbidities, patient is not stable for discharge back to [facility], therefore will plan to admit. Undiagnosed new problem with uncertain prognosis? @ -No Drug Therapy requiring intensive monitoring for toxicity (Heparin, Nitro, Insulin, Cardizem)? @ -No Were any procedures done? @ -No Diagnosis/symptom? @ -Chest pain, elevated lipase Acute, or Chronic, or Acute on Chronic? @ -default Uncomplicated (without systemic symptoms) or Complicated (systemic symptoms)? @ -default Side effects of treatment? @ -No Exacerbation, Progression, or Severe Exacerbation? @ -No Poses a threat to life or bodily function? How? (Chest pain, USA, VT, pneumonia, PE, COPD, DKA, ARF, appy, cholecystitis, CVA, Diverticulitis, Homicidal, Suicidal, threat to staff... and all critical care pts) @ -No Disposition Clinical Impression: Atypical chest pain, Elevated lipase, Narcotic abuse Disposition: ADMITTED IP TO THIS [facility] Condition: Stable Referrals: None,Stated [Primary Care Provider] - 1-2 days
[2023-05-17] MEDS ORDERED: ONDANSETRON 4 MG/2 ML VIAL IVP STA (21:01)
--- NOTE | 2023-05-17 21:42 | XR ---
EXAMINATION TYPE: XR chest 2V DATE OF EXAM: 05/17/2023 9:25 PM CLINICAL INDICATION:Female, 52 years old with history of Chest Pain; COMPARISON: Chest radiographs from 05/13/2023 TECHNIQUE: XR chest 2V Frontal and lateral views of the chest. FINDINGS: Lungs/Pleura: e increasing basilar airspace opacities best seen on lateral view of the posterior cost ophrenic angle. There is no evidence of pleural effusion, focal consolidation, or pneumothorax. Pulmonary vascularity: Unremarkable. Heart/mediastinum: Cardiomediastinal silhouette is unremarkable. Musculoskeletal: No acute osseous pathology. IMPRESSION: Increasing basilar airspace opacities correlate for pneumonia.
[2023-05-17] MEDS ORDERED: ONDANSETRON ODT 4 MG TAB PO STA (21:52)
[2023-05-17 22:23] LABS: Basophils # (A) 0.1 k/uL (0-0.2); Basophils % (A) 0 %; Eosinophils # (A) 0.1 k/uL (0-0.7); Eosinophils % (A) 1 %; HCT 42.8 % (34.0-46.0); HGB 14.1 gm/dL (11.4-16.0); Lymphocytes # (A) 4.2 k/uL (1.0-4.8); Lymphocytes % (A) 24 %; MCH 31.8 pg (25.0-35.0); MCV 96.5 fL (80.0-100.0); Mean Platelet Volume 9.4; Monocytes # (A) 0.8 k/uL (0-1.0); Monocytes % (A) 4 %; Neutrophils % (A) 68 %; Platelet Count 374 k/uL (150-450); RBC 4.44 m/uL (3.80-5.40); WBC 17.6 k/uL (3.8-10.6)
[2023-05-17 22:32] LABS: Partial Thromboplastin Time 25.1 sec (22.0-30.0)
[2023-05-17 23:04] LABS: ALT 14 U/L (4-34); AST 19 U/L (14-36); African American GFR (CKD) >90 (>60 ml/min/1.73 sqM); Albumin 3.5 g/dL (3.5-5.0); Alkaline Phosphatase 78 U/L (38-126); Anion Gap 8 mmol/L; Blood Urea Nitrogen 22 mg/dL (7-17); Calcium 9.1 mg/dL (8.4-10.2); Carbon Dioxide 27 mmol/L (22-30); Chloride 105 mmol/L (98-107); Glucose 87 mg/dL (74-99); Lipase 498 U/L (23-300); Non-African American GFR(CKD) >90 (>60 ml/min/1.73 sqM); Potassium 3.6 mmol/L (3.5-5.1); Sodium 140 mmol/L (137-145); Total Bilirubin 0.3 mg/dL (0.2-1.3); Total Protein 6.6 g/dL (6.3-8.2)
[2023-05-17 23:12] LABS: NT-Pro-B-Type Natriuretic Pept 516 pg/mL
[2023-05-18] MEDS ORDERED: NALOXONE 0.4 MG/ML 1 ML VIAL IV PRN (01:02)
[2023-05-18] MEDS: SODIUM CHLORIDE 0.9% 1,000 ML IV SCH ×3 (01:35→22:59)
[2023-05-18] MEDS: KETOROLAC 15 MG/ML 1 ML VIAL IVP PRN (02:13)
[2023-05-18] MEDS: PANTOPRAZOLE 40 MG/10 ML VIAL IV SCH (09:25)
[2023-05-18] MEDS ORDERED: diphenhydrAMINE 25 MG CAP PO PRN (10:41)
[2023-05-18] MEDS ORDERED: traZODone HCL 50 MG TAB PO PRN (10:41)
[2023-05-18] MEDS ORDERED: NITROGLYCERIN SL TABS 0.4 MG TAB SUBLINGUAL PRN (10:41)
[2023-05-18] MEDS ORDERED: NON FORMULARY DRUG (Calcium/Magnesium/Zinc/Vitamin D 334/134/5mg 1 TAB) PO PRN (10:41)
[2023-05-18] MEDS ORDERED: IBUPROFEN 600 MG TAB PO PRN (10:41)
[2023-05-18] MEDS ORDERED: HYOSCYAMINE SULFATE 0.125 MG TAB PO PRN (10:41)
[2023-05-18] MEDS ORDERED: AMOXIC-POT CLAV 875-125MG 1 EACH TAB PO SCH (10:45)
[2023-05-18] MEDS ORDERED: PIPERACILLIN-TAZOBACTAM 3.375 GM in SODIUM CHLORIDE 0.9% 100 ML IVPB ONE (12:00)
[2023-05-18 12:03] LABS: African American GFR (CKD) >90 (>60 ml/min/1.73 sqM); Amylase 128 U/L (30-110); Anion Gap 12 mmol/L; Blood Urea Nitrogen 20 mg/dL (7-17); Calcium 8.9 mg/dL (8.4-10.2); Carbon Dioxide 18 mmol/L (22-30); Chloride 111 mmol/L (98-107); Glucose 90 mg/dL (74-99); Lipase 393 U/L (23-300); Non-African American GFR(CKD) >90 (>60 ml/min/1.73 sqM); Sodium 141 mmol/L (137-145)
[2023-05-18] MEDS: THIAMINE 100 MG TAB PO SCH (12:45)
[2023-05-18] MEDS: MULTIVITAMINS, THERA 1 EACH TAB PO SCH (12:45)
[2023-05-18 12:47] LABS: C Reactive Protein 2.2 mg/dL (<1.0)
[2023-05-18] MEDS: ACETAMINOPHEN TAB 325 MG TAB PO PRN (12:56)
[2023-05-18 13:15] LABS: Basophils # (A) 0.1 k/uL (0-0.2); Basophils % (A) 1 %; Eosinophils # (A) 0.1 k/uL (0-0.7); Eosinophils % (A) 1 %; HCT 43.4 % (34.0-46.0); HGB 14.5 gm/dL (11.4-16.0); Lymphocytes # (A) 3.4 k/uL (1.0-4.8); Lymphocytes % (A) 27 %; MCH 33.1 pg (25.0-35.0); MCHC 33.5 g/dL (31.0-37.0); MCV 98.8 fL (80.0-100.0); Mean Platelet Volume 9.4; Monocytes # (A) 0.6 k/uL (0-1.0); Monocytes % (A) 5 %; Neutrophils # (A) 8.1 k/uL (1.3-7.7); Neutrophils % (A) 65 %; Platelet Count 337 k/uL (150-450); RBC 4.39 m/uL (3.80-5.40); RDW 13.1 % (11.5-15.5); WBC 12.6 k/uL (3.8-10.6)
--- NOTE | 2023-05-18 13:31 | HP ---
HISTORY AND PHYSICAL CHIEF COMPLAINT: Chest pain, abdominal pain. HISTORY OF PRESENT ILLNESS: This is a 52-year-old woman with a past medical history of multiple medical problems including heroin abuse, was admitted from [facility] with complaints of left-sided chest pain, abdominal discomfort. The patient was recently admitted with suspected infective endocarditis which was ruled out. The patient had a tree-in-bud appearance left lower lobe pneumonia, possibly aspiration. Patient was given antibiotics, apparently not able to tolerate antibiotic and cardiology evaluation in progress. The patient was admitted for further evaluation and treatment. There is no history of any fever, rigor, or chills. PAST MEDICAL HISTORY: History of reviewed include history of recent IV heroin abuse, COPD. HOME MEDICATIONS: Rest of the history and rest of the chart is also reviewed. HOME MEDICATIONS: Reviewed, nitroglycerin, rest of the medications and rest of chart is also reviewed. ALLERGIES: None known. FAMILY HISTORY: No history of heart disease or stroke in the family. SOCIAL HISTORY: Smoking, IV drug abuse. PHYSICAL EXAMINATION: VITAL SIGNS: Pulse is 65, blood pressure 110/60, and respirations 18. HEENT: Conjunctivae normal. NECK: No jugular venous distention. CARDIOVASCULAR: S1, S2 muffled. RESPIRATIONS: Few scattered rhonchi, no crackles. ABDOMEN: Soft, nontender. LEGS: No edema, no swelling. NERVOUS SYSTEM: No focal deficit. LABORATORY DATA: WBC 17.6. Lipase is 498. ASSESSMENT: 1. Left-sided chest pain, rule out CAD. 2. Left lower lobe pneumonia, possibly aspiration. 3. Elevated WBC. 4. Elevated lipase, possible pancreatitis. 5. History of IV drug abuse, heroin. 6. COPD. RECOMMENDATIONS: This 52-year-old woman presented with multiple complex medical issues, we will monitor the patient closely. I would recommend to continue the empiric antibiotics. Infectious Disease evaluation. Cardiology evaluation, sedimentation rate, CRP, blood cultures. The patient might require a IFRAH. I would also recommend a CT scan of the abdomen, pelvis, and chest if it is not done previously. 2D echo also will be reviewed. Prognosis guarded because of multiple complex medical issues. Further recommendations to follow. See orders for details. MMODL / IJN: [id number] /
--- NOTE | 2023-05-18 13:55 | P.CRDCN ---
History of Present Illness History of present illness: HISTORY OF PRESENT ILLNESS: This is a 52-year-old female with a past medical history significant for nicotine dependence and IV drug abuse. Patient does not follow with a patient svcs mgr. We have been asked to see the patient in consultation for chest pain. Patient examined at the bedside. Patient was hospitalized last week secondary to chest pain and shortness of breath. Patient was found to have leukocytosis on admission with a white count of 25. An echocardiogram was completed at that time revealing ejection fraction 55-60% with no significant valvular abnormalities. No evidence of masses or vegetation. Blood cultures were negative at that time. The patient was discharged back to [facility]. She states that she continued to have chest pain and shortness of breath. She states that she feels too weak to participate in any of the activities at rehab. She continues to report intermittent chest pain. She states the pain is worse with deep inspiration. She also reports the pain is worse with exertion such as walking. * EKG reveals sinus mechanism with T-wave inversion in V3V4, new from previous EKG * Chest xray increasing basilar airspace opacities. Correlate for pneumonia. * Laboratory data: WBC 12.6. Hemoglobin 14.5. Platelet count 337. Sodium 141. Potassium 4.0. B UN 20. Creatinine 0.28. Troponin negative 2. Lipase 498. Repeat 393. * Current home cardiac medications include clonidine 0.1 mg every 4 hours as needed REVIEW OF SYSTEMS: At the time of my exam: CONSTITUTIONAL: Denies fever or chills. HEENT: Denies blurred vision, vision changes, or eye pain. Denies hemoptysis CARDIOVASCULAR: Denies chest pain. Denies orthopnea. Denies PND. Denies palpitations RESPIRATORY: Denies shortness of breath. GASTROINTESTINAL: Denies abdominal pain. Denies nausea or vomiting. HEMATOLOGIC: Denies bleeding disorders. GENITOURINARY: Denies any blood in urine. SKIN: Denies pruitis. Denies rash. PHYSICAL EXAM: VITAL SIGNS: Reviewed. GENERAL: Well-developed in no acute distress. HEENT: Head is normocephalic. Pupils are equal, round. Sclerae anicteric. Mucous membranes of the mouth are moist. Neck supple. No JVD or thyromegaly LUNGS: Respirations even and unlabored. Lungs essentially clear to auscultation bilaterally. HEART: Regular rate and rhythm. S1 and S2 heard. ABDOMEN: Soft. Nondistended. Nontender. EXTREMITIES: Normal range of motion. No clubbing or cyanosis. Peripheral pulses intact. No lower extremity edema NEUROLOGIC: Awake and alert. Oriented x 3. ASSESSMENT: Chest pain, atypical, troponin negative 2 Leukocytosis Elevated lipase History of IV drug abuse, heroin and crack, last used on 05/09/2023 Nicotine dependence PLAN: An acute coronary event has been ruled out Repeat EKG Obtain limited echo Smoking cessation recommended Abstinence from drug use encouraged Further recommendations pending patient course Nurse practitioner note has been reviewed by physician. Signing provider agrees with the documented findings, assessment, and plan of care. Past Medical History Past Medical History: COPD Additional Past Medical History / Comment(s): smoker, hx substance abuse - heroin, cocaine History of Any Multi-Drug Resistant Organisms: None Reported Past Surgical History: No Surgical Hx Reported, Cholecystectomy Past Anesthesia/Blood Transfusion Reactions: No Reported Reaction Past Psychological History: No Psychological Hx Reported Smoking Status: Current every day smoker Past Alcohol Use History: None Reported Past Drug Use History: Heroin, IV Drug Use, Marijuana Medications and Allergies Home Medications Medication Instructions Recorded Confirmed Type Acetaminophen Tab [Tylenol] 650 mg PO Q4H PRN 05/13/23 05/18/23 History Calcium/Magnesium/Zinc/Vitamin D 1 tab PO TID PRN 05/13/23 05/18/23 History 334/134/5mg Chlorpheniramine Maleate 4 mg PO Q4H PRN 05/13/23 05/18/23 History [Chlor-Trimeton] Hyoscyamine Sulfate [Levsin] 0.125 mg PO QID PRN 05/13/23 05/18/23 History Ibuprofen [Motrin Ib] 600 mg PO Q6H PRN 05/13/23 05/18/23 History Loperamide HCl [Loperamide] 4 mg PO QID PRN 05/13/23 05/18/23 History Multivitamins, Thera [Multivitamin 1 tab PO DAILY 05/13/23 05/18/23 History (formulary)] Thiamine [Vitamin B-1] 100 mg PO DAILY 05/13/23 05/18/23 History cloNIDine HCL [Catapres] 0.1 mg PO Q4H PRN 05/13/23 05/18/23 History ondansetron HCL [Zofran] 8 mg PO Q6H PRN 05/13/23 05/18/23 History traZODone HCL [Desyrel] 50 - 150 mg PO HS PRN 05/13/23 05/18/23 History Amoxic-Pot Clav 875-125Mg 1 tab PO Q12HR 7 Days #14 tab 05/16/23 05/18/23 Rx [Augmentin 875-125] Aspirin 325 mg PO ONCE 05/18/23 05/18/23 History Nitroglycerin Sl Tabs [Nitrostat] 0.4 mg SUBLINGUAL Q5M PRN 05/18/23 05/18/23 History Allergies Allergy/AdvReac Type Severity Reaction Status Date / Time No Known Allergies Allergy Verified 05/18/23 06:43 Physical Exam Vitals: Vital Signs Temp Pulse Pulse Resp BP BP Pulse Ox 05/18/23 07:00 97.7 F 65 18 120/62 98 05/18/23 06:00 72 19 118/67 94 L 05/18/23 04:00 66 16 119/71 96 05/17/23 21:00 20 05/17/23 20:36 98.0 F 75 19 114/70 92 L Intake and Output 05/17/23 05/18/23 05/18/23 22:59 06:59 14:59 Other: Weight 43.091 kg 43.091 kg Results 05/18/23 11:38 05/18/23 11:38 Cardiac Enzymes 05/17/23 05/17/23 05/18/23 Range/Units 21:50 21:50 00:41 AST 19 (14-36) U/L Troponin I <0.012 <0.012 (0.000-0.034) ng/mL Coagulation 05/17/23 Range/Units 21:50 PT 11.0 (10.0-12.5) sec APTT 25.1 (22.0-30.0) sec CBC 05/17/23 05/18/23 Range/Units 21:50 11:38 WBC 17.6 H 12.6 H (3.8-10.6) k/uL RBC 4.44 4.39 (3.80-5.40) m/uL Hgb 14.1 14.5 (11.4-16.0) gm/dL Hct 42.8 43.4 (34.0-46.0) % Plt Count 374 337 (150-450) k/uL Comprehensive Metabolic Panel 05/17/23 05/18/23 Range/Units 21:50 11:38 Sodium 140 141 (137-145) mmol/L Potassium 3.6 4.0 (3.5-5.1) mmol/L Chloride 105 111 H (98-107) mmol/L Carbon Dioxide 27 18 L (22-30) mmol/L BUN 22 H 20 H (7-17) mg/dL Creatinine 0.39 L 0.28 L (0.52-1.04) mg/dL Glucose 87 90 (74-99) mg/dL Calcium 9.1 8.9 (8.4-10.2) mg/dL AST 19 (14-36) U/L ALT 14 (4-34) U/L Alkaline Phosphatase 78 (38-126) U/L Total Protein 6.6 (6.3-8.2) g/dL Albumin 3.5 (3.5-5.0) g/dL Current Medications Generic Name Dose Route Start Last Admin Trade Name Freq PRN Reason Stop Dose Admin Acetaminophen 650 mg 05/18/23 10:41 05/18/23 12:56 Acetaminophen Tab 325 Mg Tab PO 650 mg Q4H PRN Administration Pain Clonidine 0.1 mg 05/18/23 10:41 Clonidine Hcl 0.1 Mg Tab PO Q4H PRN Anxiety Diphenhydramine HCl 25 mg 05/18/23 10:41 Diphenhydramine 25 Mg Cap PO Q4H PRN Allergy Symptoms Hyoscyamine 0.125 mg 05/18/23 10:41 Hyoscyamine Sulfate 0.125 Mg Tab PO QID PRN ABDOMINAL SPASMS Sodium Chloride 1,000 mls @ 60 mls/hr 05/18/23 01:15 05/18/23 09:33 Saline 0.9% IV 130 mls/hr .[id number] RICO Administration Piperacillin Sod/Tazobactam 100 mls @ 25 mls/hr 05/18/23 18:00 Sod 3.375 gm/ Sodium Chloride IVPB Q8HR RICO Protocol Piperacillin Sod/Tazobactam 100 mls @ 25 mls/hr 05/18/23 12:00 05/18/23 12:44 Sod 3.375 gm/ Sodium Chloride IVPB 05/18/23 15:59 25 mls/hr ONCE ONE Administration Protocol Ibuprofen 600 mg 05/18/23 10:41 Ibuprofen 600 Mg Tab PO Q6H PRN Pain Iopamidol 30 ml 05/18/23 13:07 Iopamidol Contrast (Oral Use) Vial PO 05/19/23 13:[address] Scan Ketorolac Tromethamine 15 mg 05/18/23 01:02 05/18/23 02:13 Ketorolac 15 Mg/Ml 1 Ml Vial IVP 05/21/23 01:06 15 mg Q6HR PRN Administration Moderate Pain (Scale 4 to 6) Loperamide HCl 4 mg 05/18/23 10:41 Loperamide 2 Mg Cap PO QID PRN Diarrhea Multivitamins 1 each 05/18/23 10:45 05/18/23 12:45 Multivitamins, Thera 1 Each Tab PO 1 each DAILY RICO Administration Naloxone HCl 0.2 mg 05/18/23 01:02 Naloxone 0.4 Mg/Ml 1 Ml Vial IV Q2M PRN Opioid Reversal Nitroglycerin 0.4 mg 05/18/23 10:41 Nitroglycerin Sl Tabs 0.4 Mg Tab SUBLINGUAL Q5M PRN Chest Pain Ondansetron HCl 4 mg 05/18/23 01:02 Ondansetron 4 Mg/2 Ml Vial IVP Q8HR PRN Nausea And Vomiting Ondansetron HCl 8 mg 05/18/23 10:41 Ondansetron 4 Mg Tab PO Q6H PRN Nausea And Vomiting Pantoprazole Sodium 40 mg 05/18/23 09:00 05/18/23 09:25 Pantoprazole 40 Mg/10 Ml Vial IV 40 mg DAILY RICO Administration Thiamine HCl 100 mg 05/18/23 10:45 05/18/23 12:45 Thiamine 100 Mg Tab PO 100 mg DAILY RICO Administration Trazodone HCl 50 mg 05/18/23 10:41 Trazodone Hcl 50 Mg Tab PO HS PRN Insomnia Intake and Output 05/17/23 05/18/23 05/18/23 22:59 06:59 14:59 Other: Weight 43.091 kg 43.091 kg Patient Weight 05/19/23 06:59 Weight 43.091 kg 05/18/23 11:38 05/18/23 11:38
[2023-05-18] MEDS: IOPAMIDOL CONTRAST (ORAL USE) VIAL PO PRN ×2 (14:08→15:13)
[2023-05-18 16:01] VITALS: BMI 14.0
--- NOTE | 2023-05-18 16:05 | CT ---
EXAMINATION TYPE: CT abdomen pelvis w con CT DLP: 320.40 mGycm, Automated exposure control for dose reduction was used. DATE OF EXAM: 05/18/2023 3:56 PM COMPARISON: CTA chest 05/13/2023 CLINICAL INDICATION:Female, 52 years old with history of abdominal pain; ABDOMINAL PAIN AND DISCOMFOR T. TECHNIQUE: Standard CT of the abdomen and pelvis following the administration of 100 cc of Isovue 3 00 IV contrast material and oral contrast. Coronal and sagittal reformats were performed. FINDINGS: LOWER CHEST: Redemonstration of tree-in-bud opacities with consolidation within the bilateral lower l obes with left greater than right. ABDOMEN LIVER: Unremarkable GALLBLADDER AND BILE DUCTS: Gallbladder is surgically absent with mild extra hepatic biliary dilatati on likely physiologic and a postcholecystectomy change. No evidence of choledocholithiasis. PANCREAS: Unremarkable. SPLEEN: Unremarkable. ADRENAL GLANDS: Unremarkable. KIDNEYS AND URETERS: No evidence of hydronephrosis or renal calculus. The kidneys enhance symmetrical ly. Contrast is demonstrated within both collecting systems on the delayed phase. PELVIS BLADDER: Unremarkable REPRODUCTIVE: Unremarkable. ABDOMEN & PELVIS STOMACH AND BOWEL: Stomach and duodenum are unremarkable. Enteric contrast reaches the right colon. N o focal bowel wall thickening or surrounding inflammatory changes. The appendix is unremarkable. No e vidence of bowel obstruction. PERITONEUM: No evidence of pneumoperitoneum or free fluid. VASCULATURE: Mild atherosclerotic calcifications are present throughout the abdominal aorta and its b ranches. No evidence of aortic aneurysm. MUSCULOSKELETAL: No acute osseous abnormalities. Mild degenerative disc disease at L5-S1. LYMPH NODES: No gross evidence for lymphadenopathy. SOFT TISSUE/ABDOMINAL WALL: Unremarkable IMPRESSION: 1. No acute abdominal/pelvic process. 2. Redemonstration of bilateral lower lobe tree-in-bud nodular opacities in consolidation consistent with a inflammatory/infectious bronchiolitis. 3. Post cholecystectomy changes.
[2023-05-18 16:44] LABS: Amphetamine Screen,Urine Not Detected (NotDetected); Barbiturate Screen,Urine Not Detected (NotDetected); Benzodiazepines Screen,Urine Not Detected (NotDetected); Cocaine Screen,Urine Not Detected (NotDetected); Methadone Screen, Urine Not Detected (NotDetected); Opiate Screen,Urine Not Detected (NotDetected); Oxycodone Screen, Urine Not Detected (NotDetected); Phencyclidine Screen,Urine Not Detected (NotDetected); Tricyclic Antidepressant,Urine Not Detected (NotDetected); Urn Cannabinoid Scrn Not Detected (NotDetected)
[2023-05-18] MEDS ORDERED: PIPERACILLIN-TAZOBACTAM 3.375 GM in SODIUM CHLORIDE 0.9% 100 ML IVPB SCH (18:00)
[2023-05-18] MEDS: NICOTINE 21MG/24HR PATCH TRANSDERM SCH (18:18)
[2023-05-18] MEDS: ALPRAZolam 0.25 MG TAB PO PRN (18:18)
[2023-05-18] MEDS: cloNIDine HCL 0.1 MG TAB PO PRN (20:07)
--- NOTE | 2023-05-18 22:51 | P.CONS ---
History of Present Illness - Reason for Consult Consult date: 05/18/23 - History of Present Illness Patient is a 52-year-old female with a past medical history significant for IV drug use who was recently admitted at this facility from the [facility] with an episode of chest tightness shortness of breath and cough patient did have a CT angiogram that was suggestive of extensive pneumonia likely aspiration etiology patient did have a negative blood cultures she was unable to bring up any sputum patient was treated with IV Zosyn and did have a clinical improvement patient has been insisting on going home day 2 of her last hospital stay and on 05/16/2023 patient was threatening to leave AMA saying that she is feeling better and cannot stay in the hospital anymore cheri mccurdy was reluctantly discharged on oral Augmentin and Diflucan the patient now presenting back to the hospital for evaluation of chest heaviness patient apparently took only 1 antibiotics as patient mention she did have some stomach upset with it and did not take any further oral antibiotics patient denies having any fever or any chills no headache or URI symptoms has been complaining of mostly chest heaviness shortness of breath but not requiring any supplemental oxygen she also have a cough moderate intensity but unable to bring up any sputum no further nausea vomiting abdominal pain or diarrhea, patient on presentation to the hospital was afebrile and no fever has been recorded subsequently patient did have mild hypoxemia on admission admission however currently satting 98% on room air did have vital of 17.6 with a left shift kidney function normal liver exams are normal patient did have a chest x-ray increasing bibasilar airspace opacities correlate for pneumonia patient was started on Zosyn infectious disease was consulted for further management of antibiotic therapy Past Medical History Past Medical History: COPD Additional Past Medical History / Comment(s): smoker, hx substance abuse - heroin, cocaine History of Any Multi-Drug Resistant Organisms: None Reported Past Surgical History: No Surgical Hx Reported, Cholecystectomy Past Psychological History: No Psychological Hx Reported Smoking Status: Current every day smoker Past Alcohol Use History: None Reported Past Drug Use History: IV Drug Use, Marijuana Medications and Allergies Home Medications Medication Instructions Recorded Confirmed Type Acetaminophen Tab [Tylenol] 650 mg PO Q4H PRN 05/13/23 05/18/23 History Calcium/Magnesium/Zinc/Vitamin D 1 tab PO TID PRN 05/13/23 05/18/23 History 334/134/5mg Chlorpheniramine Maleate 4 mg PO Q4H PRN 05/13/23 05/18/23 History [Chlor-Trimeton] Hyoscyamine Sulfate [Levsin] 0.125 mg PO QID PRN 05/13/23 05/18/23 History Ibuprofen [Motrin Ib] 600 mg PO Q6H PRN 05/13/23 05/18/23 History Loperamide HCl [Loperamide] 4 mg PO QID PRN 05/13/23 05/18/23 History Multivitamins, Thera [Multivitamin 1 tab PO DAILY 05/13/23 05/18/23 History (formulary)] Thiamine [Vitamin B-1] 100 mg PO DAILY 05/13/23 05/18/23 History cloNIDine HCL [Catapres] 0.1 mg PO Q4H PRN 05/13/23 05/18/23 History ondansetron HCL [Zofran] 8 mg PO Q6H PRN 05/13/23 05/18/23 History traZODone HCL [Desyrel] 50 - 150 mg PO HS PRN 05/13/23 05/18/23 History Amoxic-Pot Clav 875-125Mg 1 tab PO Q12HR 7 Days #14 tab 05/16/23 05/18/23 Rx [Augmentin 875-125] Aspirin 325 mg PO ONCE 05/18/23 05/18/23 History Nitroglycerin Sl Tabs [Nitrostat] 0.4 mg SUBLINGUAL Q5M PRN 05/18/23 05/18/23 History Allergies Allergy/AdvReac Type Severity Reaction Status Date / Time No Known Allergies Allergy Verified 05/18/23 06:43 Physical Exam Vitals: Vital Signs Temp Pulse Pulse Resp BP BP Pulse Ox 05/18/23 07:00 97.7 F 65 18 120/62 98 05/18/23 06:00 72 19 118/67 94 L 05/18/23 04:00 66 16 119/71 96 05/17/23 21:00 20 05/17/23 20:36 98.0 F 75 19 114/70 92 L Intake and Output 05/17/23 05/18/23 05/18/23 22:59 06:59 14:59 Other: Weight 43.091 kg Results CBC & Chem 7: 05/18/23 11:38 05/18/23 11:38 Labs: Abnormal Lab Results - Last 24 Hours (Table) 05/17/23 05/17/23 Range/Units 21:50 21:50 WBC 17.6 H (3.8-10.6) k/uL Neutrophils # 12.0 H (1.3-7.7) k/uL BUN 22 H (7-17) mg/dL Creatinine 0.39 L (0.52-1.04) mg/dL Lipase 498 H (23-300) U/L Assessment and Plan Plan: 1patient presented hospital with increasing shortness of breath chest heaviness pressure and cough elevated white count likely due to pneumonia with a question of aspiration etiology and noncompliance with the outpatient oral antibiotic as well as patient was fighting to go home on 05/16/2023 2-we will try to obtain a sputum for Gram stain and culture 3-check inflammatory markers 4-Discontinue Zosyn and start the pt on Unasyn 3 every 6 hours We will follow on clinical condition and cultures to further adjust medication if needed Thank you for this consultation we will follow the patient along with you Dictation was produced using [employer] dictation software. please excuse any grammatical, word or spelling errors. Time with Patient: Greater than 30
[2023-05-18] MEDS: AMPICILLIN-SULBACTAM 3 GM in SODIUM CHLORIDE 0.9% 100 ML IVPB SCH (23:58)
[2023-05-19] MEDS: ALPRAZolam 0.25 MG TAB PO PRN ×3 (01:39→17:03)
[2023-05-19] MEDS: ONDANSETRON 4 MG TAB PO PRN (01:39)
[2023-05-19] MEDS: AMPICILLIN-SULBACTAM 3 GM in SODIUM CHLORIDE 0.9% 100 ML IVPB SCH ×4 (05:48→23:28)
[2023-05-19 08:11] LABS: Total Bilirubin 0.4 mg/dL (0.2-1.3)
[2023-05-19 08:13] LABS: ALT 17 U/L (4-34); AST 25 U/L (14-36); African American GFR (CKD) >90 (>60 ml/min/1.73 sqM); Albumin 3.3 g/dL (3.5-5.0); Albumin/Globulin Ratio 1.1; Alkaline Phosphatase 65 U/L (38-126); Amylase 142 U/L (30-110); Anion Gap 10 mmol/L; Blood Urea Nitrogen 16 mg/dL (7-17); C Reactive Protein 1.4 mg/dL (<1.0); Calcium 8.7 mg/dL (8.4-10.2); Carbon Dioxide 20 mmol/L (22-30); Chloride 111 mmol/L (98-107); Globulin 3.1 g/dL; Glucose 92 mg/dL (74-99); Lipase 468 U/L (23-300); Non-African American GFR(CKD) >90 (>60 ml/min/1.73 sqM); Sodium 141 mmol/L (137-145); Total Protein 6.4 g/dL (6.3-8.2)
[2023-05-19 08:21] LABS: Potassium 4.1 mmol/L (3.5-5.1)
[2023-05-19 08:48] LABS: Basophils # (A) 0.11 X 10*3/uL (0.00-0.10); Basophils % (A) 0.6 %; Eosinophils # (A) 0.23 X 10*3/uL (0.04-0.35); Eosinophils % (A) 1.4 %; HCT 46.2 % (37.2-46.3); HGB 14.9 d/dL (12.0-15.0); Lymphocytes # (A) 4.58 X 10*3/uL (0.90-5.00); MCH 31.8 pg (27.0-32.0); MCHC 32.3 d/dL (32.0-37.0); MCV 98.5 FL (80.0-97.0); Mean Platelet Volume 11.2 FL (9.5-12.2); Monocytes # (A) 0.95 X 10*3/uL (0.20-1.00); Monocytes % (A) 5.6 %; NRBC Per 100 WBC 0 X 10*3/uL (0.00-0.01); Neutrophils # (A) 10.99 X 10*3/uL (1.80-7.70); Neutrophils % (A) 64.9 %; Platelet Count 356 X 10*3/uL (140-440); RBC 4.69 X 10*6/uL (4.10-5.20); RDW 13.2 % (11.5-14.5); WBC 16.95 X 10*3/uL (4.50-10.00)
[2023-05-19] MEDS: ACETAMINOPHEN TAB 325 MG TAB PO PRN ×2 (08:59→17:06)
[2023-05-19] MEDS: MULTIVITAMINS, THERA 1 EACH TAB PO SCH (09:01)
[2023-05-19] MEDS: THIAMINE 100 MG TAB PO SCH (09:01)
[2023-05-19] MEDS: PANTOPRAZOLE 40 MG/10 ML VIAL IV SCH (09:01)
[2023-05-19] MEDS: NICOTINE 21MG/24HR PATCH TRANSDERM SCH (09:01)
[2023-05-19] MEDS: ONDANSETRON 4 MG/2 ML VIAL IVP PRN ×2 (11:59→19:52)
[2023-05-19] MEDS: LOPERAMIDE 2 MG CAP PO PRN (11:59)
[2023-05-19 12:24] LABS: Chol/HDL Ratio 2.72 Ratio; LDL Cholesterol,Calculated 45.6 mg/dL (0.0-131.0)
--- NOTE | 2023-05-19 12:29 | P.PN ---
Subjective HISTORY OF PRESENT ILLNESS: This is a 52-year-old female with a past medical history significant for nicotine dependence and IV drug abuse. 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 We have been asked to see the patient in consultation for chest pain. Patient examined at the bedside. Patient was hospitalized last week secondary to chest pain and shortness of breath. Patient was found to have leukocytosis on admission with a white count of 25. An echocardiogram was completed at that time revealing ejection fraction 55-60% with no significant valvular abnormalities. No evidence of masses or vegetation. Blood cultures were negative at that time. The patient was discharged back to [facility]. She states that she continued to have chest pain and shortness of breath. She states that she feels too weak to participate in any of the activities at rehab. She continues to report intermittent chest pain. She states the pain is worse with deep inspiration. She also reports the pain is worse with exertion such as walking. * EKG reveals sinus mechanism with T-wave inversion in V3V4, new from previous EKG * Chest xray increasing basilar airspace opacities. Correlate for pneumonia. * Laboratory data: WBC 12.6. Hemoglobin 14.5. Platelet count 337. Sodium 141. Potassium 4.0. B UN 20. Creatinine 0.28. Troponin negative 2. Lipase 498. Repeat 393. * Current home cardiac medications include clonidine 0.1 mg every 4 hours as needed 05/19/2023 Patient examined this morning at the bedside. Patient reports improvement in her chest pain and her shortness of breath. She reports GI upset after receiving antibiotics and states she had diarrhea overnight. Repeat EKG reveals resolution of EKG changes. Vital signs stable. PHYSICAL EXAM: VITAL SIGNS: Reviewed. GENERAL: Well-developed in no acute distress. HEENT: Head is normocephalic. Pupils are equal, round. Sclerae anicteric. Mucous membranes of the mouth are moist. Neck supple. No JVD or thyromegaly LUNGS: Respirations even and unlabored. Lungs essentially clear to auscultation bilaterally. HEART: Regular rate and rhythm. S1 and S2 heard. ABDOMEN: Soft. Nondistended. Nontender. EXTREMITIES: Normal range of motion. No clubbing or cyanosis. Peripheral pulses intact. No lower extremity edema NEUROLOGIC: Awake and alert. Oriented x 3. ASSESSMENT: Chest pain, atypical, troponin negative 2 Leukocytosis Elevated lipase History of IV drug abuse, heroin and crack, last used on 05/09/2023 Nicotine dependence PLAN: An acute coronary event has been ruled out Limited echo pending. Await results Smoking cessation recommended Abstinence from drug use encouraged Patient is stable for discharge back to [facility] today from a cardiac standpoint We will follow on an as-needed basis. Please call with questions or concerns. Nurse practitioner note has been reviewed by physician. Signing provider agrees with the documented findings, assessment, and plan of care. Objective - Vital Signs Vital signs: Vital Signs Temp 98.4 F 05/19/23 07:00 Pulse 52 L 05/19/23 07:00 Resp 16 05/19/23 08:00 BP 133/76 05/19/23 07:00 Pulse Ox 99 05/19/23 07:00 FiO2 Intake & Output 05/18/23 05/19/23 05/19/23 18:59 06:59 18:59 Intake Total 222 Balance 222 Weight 43.091 kg Intake: Oral 222 Other: Voiding Method Toilet Toilet # Voids 3 3 1 - Labs CBC & Chem 7: 05/19/23 06:12 05/19/23 06:12 Labs: Abnormal Lab Results - Last 24 Hours (Table) 05/18/23 05/18/23 05/18/23 Range/Units 00:41 11:38 11:38 WBC 12.6 H (3.8-10.6) k/uL MCV (80.0-97.0) FL Neutrophils # 8.1 H (1.3-7.7) k/uL Basophils # (0.00-0.10) X 10*3/uL Chloride 111 H (98-107) mmol/L Carbon Dioxide 18 L (22-30) mmol/L BUN 20 H (7-17) mg/dL Creatinine 0.28 L (0.52-1.04) mg/dL C-Reactive Protein 2.2 H (<1.0) mg/dL Albumin (3.5-5.0) g/dL HDL Cholesterol 33.40 L (40.00-60.00) mg/dL Amylase 128 H (30-110) U/L Lipase 393 H (23-300) U/L 05/19/23 05/19/23 Range/Units 06:12 06:12 WBC 16.95 H (3.8-10.6) k/uL MCV 98.5 H (80.0-97.0) FL Neutrophils # 10.99 H (1.3-7.7) k/uL Basophils # 0.11 H (0.00-0.10) X 10*3/uL Chloride 111 H (98-107) mmol/L Carbon Dioxide 20 L (22-30) mmol/L BUN (7-17) mg/dL Creatinine 0.39 L (0.52-1.04) mg/dL C-Reactive Protein 1.4 H (<1.0) mg/dL Albumin 3.3 L (3.5-5.0) g/dL HDL Cholesterol (40.00-60.00) mg/dL Amylase 142 H (30-110) U/L Lipase 468 H (23-300) U/L
--- NOTE | 2023-05-19 13:20 | CA ---
Transthoracic Echo Report Name: Maribell Quintanilla Age: 52 Gender: F : 1970 Exam Date: 05/18/2023 14:52 Exam Location: [facility] Ht (in): 69 Wt (lb): 95 Ordering Physician: Leslie Salinas Attending/Referring Phys: [id number], Brad Assurance Officer Giorgi Elias Procedure CPT: Indications: chest pain, eval EF and wall motion Cardiac Hx: Technical Quality: Fair Contrast 1: Total Dose (mL): Contrast 2: Total Dose (mL): MEASUREMENTS (Male / Female) Normal Values 2D ECHO LV Diastolic Volume MOD BP 58.5 cm??? 67 - 155 / 56 - 104 cm??? LV Systolic Volume MOD BP 28.3 cm??? 22 - 58 / 19 - 49 cm??? LV Ejection Fraction MOD BP 51.6 % >= 55 % LV Cardiac Index MOD BP 1335.4 cm???/min???m??? LV Diastolic Volume MOD 4C 42.9 cm??? LV Systolic Volume MOD 4C 18.2 cm??? LV Ejection Fraction MOD 4C 57.6 % LV Cardiac Index MOD 4C 1094.1 cm???/min???m??? LV Diastolic Length 4C 6.0 cm LV Systolic Length 4C 5.2 cm LV Diastolic Volume MOD 2C 68.7 cm??? LV Systolic Volume MOD 2C 38.4 cm??? LV Ejection Fraction MOD 2C 44.1 % LV Cardiac Index MOD 2C 1340.2 cm???/min???m??? LV Diastolic Length 2C 7.1 cm LV Systolic Length 2C 6.0 cm FINDINGS Left Ventricle Normal LVsize. Moderate concentric LVH. Left ventricular ejection fraction is estimated at 55-60 %.m No obvious regional wall motion abnormality Right Ventricle Right Atrium Left Atrium Mitral Valve Aortic Valve Tricuspid Valve Pulmonic Valve Pericardium Aorta CONCLUSIONS Normal LVsize. Moderate concentric LVH. Left ventricular ejection fraction is estimated at 55-60 %. No obvious regional wall motion abnormality. No pericardial effusion Normal left atrial size Previewed by: Dr Maurice Cristobal (Electronically Signed) Final Date: 19 May 2023 13:19
--- NOTE | 2023-05-19 14:03 | P.PN ---
Subjective Progress Note Date: 05/19/23 Principal diagnosis: Aspiration pneumonia Patient is a 52-year-old female with a past medical history significant for IV drug use who was recently admitted at this facility from the [facility] with an episode of chest tightness shortness of breath and cough patient did have a CT angiogram that was suggestive of extensive pneumonia likely aspiration etiology patient did have a negative blood cultures patient was insisting on going home electively discharged on Augmentin presenting back to the hospital within 24 hour with worsening symptoms. On today's evaluation that is05/19/2023, the patient remains to be afebrile, the patient is breathing comfortably on room air without the need for supplemental oxygen and denies any shortness of breath, the patient certainly of some chest tightness and did have a bone unable to bring up any sputum patient denies having any vomiting did have some nausea and loose stool. White count is 16.95, creatinine 0.39 Objective - Vital Signs Vital signs: Vital Signs Temp 98.4 F 05/19/23 07:00 Pulse 52 L 05/19/23 07:00 Resp 16 05/19/23 08:00 BP 133/76 05/19/23 07:00 Pulse Ox 99 05/19/23 07:00 FiO2 Intake & Output 05/18/23 05/19/23 05/19/23 18:59 06:59 18:59 Intake Total 222 Balance 222 Weight 43.091 kg Intake: Oral 222 Other: Voiding Method Toilet Toilet # Voids 3 3 1 - Exam GENERAL DESCRIPTION: Middle-aged female lying in bed in no distress RESPIRATORY SYSTEM: Unlabored breathing , decreased breath sound the bases HEART: S1 S2 regular rate and rhythm , ABDOMEN: Soft , no tenderness EXTREMITIES: No edema feet - Labs CBC & Chem 7: 05/19/23 06:12 05/19/23 06:12 Labs: Abnormal Lab Results - Last 24 Hours (Table) 05/18/23 05/18/23 05/19/23 Range/Units 11:38 11:38 06:12 WBC 12.6 H 16.95 H (3.8-10.6) k/uL MCV 98.5 H (80.0-97.0) FL Neutrophils # 8.1 H 10.99 H (1.3-7.7) k/uL Basophils # 0.11 H (0.00-0.10) X 10*3/uL Chloride 111 H (98-107) mmol/L Carbon Dioxide 18 L (22-30) mmol/L BUN 20 H (7-17) mg/dL Creatinine 0.28 L (0.52-1.04) mg/dL C-Reactive Protein 2.2 H (<1.0) mg/dL Albumin (3.5-5.0) g/dL Amylase 128 H (30-110) U/L Lipase 393 H (23-300) U/L 05/19/23 Range/Units 06:12 WBC (3.8-10.6) k/uL MCV (80.0-97.0) FL Neutrophils # (1.3-7.7) k/uL Basophils # (0.00-0.10) X 10*3/uL Chloride 111 H (98-107) mmol/L Carbon Dioxide 20 L (22-30) mmol/L BUN (7-17) mg/dL Creatinine 0.39 L (0.52-1.04) mg/dL C-Reactive Protein 1.4 H (<1.0) mg/dL Albumin 3.3 L (3.5-5.0) g/dL Amylase 142 H (30-110) U/L Lipase 468 H (23-300) U/L Assessment and Plan (1) Diarrhea Current Visit: Yes Status: Acute Code(s): R19.7 - DIARRHEA, UNSPECIFIED SNOMED Code(s): 94087617 (2) Pneumonia Current Visit: No Status: Acute Code(s): J18.9 - PNEUMONIA, UNSPECIFIED ORGANISM SNOMED Code(s): 846995216 Plan: 1patient presented hospital with increasing shortness of breath chest heaviness pressure and cough elevated white count likely due to pneumonia with a question of aspiration etiology and noncompliance with the outpatient oral antibiotic as well as patient was fighting to go home on 05/16/2023 2-we will try to obtain a sputum for Gram stain and culture 3Patient did have diarrhea we will check a stool for C. diff and treat if positive advised to increase her yogurt intake 4-Patient to continue with Unasyn 3 every 6 hours and monitor clinical course closely Dictation was produced using [employer]ation software. please excuse any grammatical, word or spelling errors. Time with Patient: Less than 30
[2023-05-19] MEDS: SODIUM CHLORIDE 0.9% 1,000 ML IV SCH (18:08)
--- NOTE | 2023-05-19 20:41 | PN ---
PROGRESS NOTE DATE OF SERVICE: 05/19/2023 SUBJECTIVE: This 52-year-old woman was admitted with left-sided chest pain, was evaluated by Cardiology. Recommended continued followup. CAT scan of the abdomen and pelvis, bilateral lower lobe lesions. No chest pain, no palpitation. OBJECTIVE: VITAL SIGNS: Pulse is 52, blood pressure 130/76, respirations 16. HEENT: Conjunctivae normal. CARDIOVASCULAR: S1, S2. RESPIRATIONS: Few scattered rhonchi. ABDOMEN: Soft. NERVOUS SYSTEM: No focal deficits. LABS: WBC 16.95. Amylase, lipase are improving. ASSESSMENT: 1. Left-sided chest pain, myocardial infarction ruled out. 2. Bilateral pneumonia, left more than the right, possibly aspiration. 3. Elevated WBC. 4. Mild pancreatitis possibly, elevated lipase and amylase. 5. History of IV drug abuse and heroin. 6. Chronic obstructive pulmonary disease. RECOMMENDATIONS AND DISCUSSION: Recommended to continue current medications, continue symptomatic treatment. Otherwise, we will continue empiric antibiotics, IV antibiotics, and closely monitor. Guarded prognosis. Further recommendations to follow. A 2D echo has been ordered. MMODL / IJN: [id number] /
[2023-05-20] MEDS: KETOROLAC 15 MG/ML 1 ML VIAL IVP PRN ×2 (00:03→05:11)
[2023-05-20] MEDS: LOPERAMIDE 2 MG CAP PO PRN ×2 (00:03→21:40)
[2023-05-20] MEDS: ONDANSETRON 4 MG TAB PO PRN (04:26)
[2023-05-20] MEDS: ALPRAZolam 0.25 MG TAB PO PRN ×3 (04:26→21:40)
[2023-05-20] MEDS: AMPICILLIN-SULBACTAM 3 GM in SODIUM CHLORIDE 0.9% 100 ML IVPB SCH ×3 (05:11→18:05)
[2023-05-20] MEDS: SODIUM CHLORIDE 0.9% 1,000 ML IV SCH (06:42)
[2023-05-20] MEDS: cloNIDine HCL 0.1 MG TAB PO PRN ×2 (09:37→18:05)
[2023-05-20] MEDS: ACETAMINOPHEN TAB 325 MG TAB PO PRN ×2 (09:37→21:40)
[2023-05-20] MEDS: MULTIVITAMINS, THERA 1 EACH TAB PO SCH (09:38)
[2023-05-20] MEDS: THIAMINE 100 MG TAB PO SCH (09:38)
[2023-05-20] MEDS: NICOTINE 21MG/24HR PATCH TRANSDERM SCH (09:38)
[2023-05-20] MEDS: PANTOPRAZOLE 40 MG/10 ML VIAL IV SCH (09:38)
[2023-05-20] MEDS ORDERED: ONDANSETRON 4 MG/2 ML VIAL IVP PRN (10:06)
[2023-05-20] MEDS: METOCLOPRAMIDE 5 MG/ML 2 ML VIAL IVP SCH ×3 (11:18→18:05)
[2023-05-20] MEDS ORDERED: IPRATROPIUM-ALBUTEROL 3 ML NEB INHALATION PRN (12:11)
--- NOTE | 2023-05-20 12:37 | PN ---
PROGRESS NOTE DATE OF SERVICE: 05/20/2023 SUBJECTIVE: This is a 52-year-old woman, who was admitted with left-sided chest pain, also had possibly pneumonia and aspiration also. The patient is on antibiotics. No chest pain. No palpitations. No fever. The patient also had features of pancreatitis. OBJECTIVE: VITAL SIGNS: Pulse is 60, blood pressure 117/61, respirations 16. CHEST: Few scattered rhonchi. ABDOMEN: Soft. NERVOUS SYSTEM: Nonfocal. LABORATORY DATA: Reviewed. ASSESSMENT: 1. Left-sided chest pain, myocardial infarction ruled out, possibly musculoskeletal. 2. Bilateral pneumonia, left more than right, possibly aspiration. 3. Mild acute pancreatitis with elevated amylase and lipase. 4. Elevated WBC. 5. History of IV drug abuse and heroin. 6. Chronic obstructive pulmonary disease. 7. Multiple medical issues. RECOMMENDATIONS: Recommend to continue current medications. Continue symptomatic treatment. Continue with bronchodilators. Continue with antibiotics. Repeat labs, amylase and lipase. Guarded prognosis. Further recommendations to follow. MMODL / IJN: [id number] /
[2023-05-20] MEDS: IPRATROPIUM-ALBUTEROL 3 ML NEB INHALATION SCH ×2 (15:36→20:53)
[2023-05-20] MEDS: SYMBICORT 160-4.5 MCG INHALER INHALATION SCH ×2 (15:36→20:53)
[2023-05-21] MEDS: METOCLOPRAMIDE 5 MG/ML 2 ML VIAL IVP SCH ×3 (00:08→13:11)
[2023-05-21] MEDS: SODIUM CHLORIDE 0.9% 1,000 ML IV SCH (00:08)
[2023-05-21] MEDS: AMPICILLIN-SULBACTAM 3 GM in SODIUM CHLORIDE 0.9% 100 ML IVPB SCH ×3 (00:08→13:11)
[2023-05-21] MEDS: ACETAMINOPHEN TAB 325 MG TAB PO PRN (04:49)
[2023-05-21] MEDS: ALPRAZolam 0.25 MG TAB PO PRN ×2 (05:17→13:21)
[2023-05-21 09:03] LABS: Basophils # (A) 0.06 X 10*3/uL (0.00-0.10); Basophils % (A) 0.5 %; Eosinophils # (A) 0.21 X 10*3/uL (0.04-0.35); Eosinophils % (A) 1.6 %; HCT 41.5 % (37.2-46.3); HGB 13.6 d/dL (12.0-15.0); Lymphocytes # (A) 3.79 X 10*3/uL (0.90-5.00); Lymphocytes % (A) 29.3 %; MCH 31.8 pg (27.0-32.0); MCHC 32.8 d/dL (32.0-37.0); Mean Platelet Volume 11.1 FL (9.5-12.2); Monocytes # (A) 0.98 X 10*3/uL (0.20-1.00); Monocytes % (A) 7.6 %; NRBC Per 100 WBC 0 X 10*3/uL (0.00-0.01); Neutrophils # (A) 7.83 X 10*3/uL (1.80-7.70); Neutrophils % (A) 60.4 %; Platelet Count 409 X 10*3/uL (140-440); RBC 4.28 X 10*6/uL (4.10-5.20); RDW 13.3 % (11.5-14.5); WBC 12.95 X 10*3/uL (4.50-10.00)
[2023-05-21 09:07] VITALS: BP 106/58; RESP 20; TEMP 98.3
[2023-05-21] MEDS: SYMBICORT 160-4.5 MCG INHALER INHALATION SCH (09:14)
[2023-05-21] MEDS: IPRATROPIUM-ALBUTEROL 3 ML NEB INHALATION SCH ×2 (09:14→11:58)
[2023-05-21 09:16] LABS: ALT 14 U/L (8-44); AST 15 U/L (13-35); Albumin 3.4 d/dL (3.8-4.9); Albumin/Globulin Ratio 1.48 Ratio (1.60-3.17); Alkaline Phosphatase 68 U/L (41-126); Amylase 107 U/L (23-121); BUN/Creat Ratio 24.75 Ratio (12.00-20.00); Blood Urea Nitrogen 9.9 mg/dL (9.0-27.0); Calcium 8.7 mg/dL (8.7-10.3); Chloride 109 mmol/L (96-109); Globulin 2.3 d/dL (1.6-3.3); Glucose 115 mg/dL (70-110); Potassium 4.1 mmol/L (3.5-5.5); Sodium 144 mmol/L (135-145); Total Bilirubin <0.2 mg/dL (0.3-1.2); Total Protein 5.7 d/dL (6.2-8.2)
[2023-05-21] MEDS: PANTOPRAZOLE 40 MG/10 ML VIAL IV SCH (09:49)
[2023-05-21] MEDS: THIAMINE 100 MG TAB PO SCH (09:49)
[2023-05-21] MEDS: NICOTINE 21MG/24HR PATCH TRANSDERM SCH (09:49)
[2023-05-21] MEDS: MULTIVITAMINS, THERA 1 EACH TAB PO SCH (09:49)
[2023-05-21 10:16] LABS: Lipase 83 U/L (14-63)
[2023-05-21 12:12] VITALS: PULSE 68
--- NOTE | 2023-05-22 14:35 | P.DS ---
Providers Date of admission: 05/19/23 12:44 Expected date of discharge: 05/21/23 Attending physician: Thomas Nichole MD Consults: 05/18/23 11:36 Consult Physician Routine Consulting Provider: Becky Wing Consult Reason/Comments: pneumonia, ie Do you want consulting provider notified?: Yes Primary care physician: Stated None Hospital Course: Final diagnosis Left sided chest pain, myocardial infarction ruled out, possibly musculoskeletal Bilateral pneumonia left more than right, possibly aspiration, present on admission Mild acute pancreatitis with elevated amylase and lipase Elevated WBC, resolved History of IV drug abuse and heroin Chronic obstructive pulmonary disease Moderate protein calorie malnutrition with a BMI of 14.0 GI prophylaxis DVT prophylaxis Full code Discharge disposition Patient is being discharged in a stable condition with guarded prognosis to [facility] to continue . Patient will follow-up with Dr. Josafat Cabrera in the outpatient setting upon discharge. Patient is to continue with oral Augmentin twice daily for 2 weeks per ID recommendations . Total time taken is greater than 35 minutes. Hospital course This is a 52-year-old female who was recently admitted with chest pain with concerns of possible pneumonia, possibly aspiration maintained on antibiotics. Patient was at [facility] had recurrence and brought back care for further evaluation. Patient was having abdominal pain with nausea and vomiting unable to take medications. Patient had CAT scan showing no acute process although having some features of pancreatitis. Patient having improvements and abdominal pain and tolerating diet. We'll continue anti-nausea medications as needed and patient would like to return to [facility] to complete rehab and then will be planning on staying here in the [place] area she reports. Patient was provided resources to establish with primary care providers. Patient was seen and evaluated by infectious disease recommending Augmentin twice daily for 2 weeks course on discharge. Please refer to other consultation notes for further HPI. Currently no reports of chest pain, shortness of breath, or palpitations. Patient is afebrile. No reports of nausea or vomiting and patient is tolerating diet. Patient will be going to [facility] today. Guarded prognosis and high risk for readmissions Physical exam: Gen: This is a 52-year-old female who is awake, alert and oriented 3, thin built, appears older than stated age, well-developed HEENT: Head is atraumatic, normocephalic. Pupils equal, round. Sclerae is anicteric. NECK: Supple. No JVD. No lymphadenopathy. No thyromegaly. LUNGS: Diminished breath sounds bilaterally with no wheezes or rhonchi. No intercostal retractions. HEART: Regular rate and rhythm. No murmur. ABDOMEN: Soft. Bowel sounds are present. No masses. No tenderness. EXTREMITIES: No pedal edema. No calf tenderness. NEUROLOGICAL: Patient is awake, alert and oriented x3. Cranial nerves 2 through 12 are grossly intact. Please refer to medication reconciliation sheet for a list of medications. The impression and plan of care has been dictated by Jeanette Dominguez, Nurse Practitioner as directed. Dr. Rick MD I have performed a history and examination and MDM of this patient, discussed the same with the dictator, and agree with the dictator's assessment and plan as written ,documented as a scribe. Based on total visit time, I have performed more than 50% of the visit. Patient Condition at Discharge: Stable Plan - Discharge Summary Discharge Rx Participant: Yes New Discharge Prescriptions: New Budesonide-Formot 160-4.5 Mcg [Symbicort 160-4.5 Mcg Inhaler] 2 puff INHALATION RT-BID 30 Days #1 each ALPRAZolam [Xanax] 0.25 mg PO TID PRN #3 tab PRN Reason: Anxiety Nicotine 21Mg/24Hr Patch [Habitrol] 1 patch TRANSDERM DAILY #30 patch Metoclopramide HCl [Reglan] 5 mg PO TID PRN #20 tablet PRN Reason: Nausea Ipratropium/Albuter 20-100Mcg [Combivent Respimat 20-100Mcg Inhaler] 1 puff INHALATION BID 30 Days #4 gm Continue Thiamine [Vitamin B-1] 100 mg PO DAILY Multivitamins, Thera [Multivitamin (formulary)] 1 tab PO DAILY Hyoscyamine Sulfate [Levsin] 0.125 mg PO QID PRN PRN Reason: ABDOMINAL SPASMS Loperamide HCl [Loperamide] 4 mg PO QID PRN PRN Reason: Diarrhea Calcium/Magnesium/Zinc/Vitamin D 334/134/5mg 1 tab PO TID PRN PRN Reason: muscle cramps Amoxic-Pot Clav 875-125Mg [Augmentin 875-125] 1 tab PO Q12HR 14 Days #28 tab ondansetron HCL [Zofran] 8 mg PO Q6H PRN PRN Reason: Nausea And Vomiting Acetaminophen Tab [Tylenol] 650 mg PO Q4H PRN PRN Reason: Pain traZODone HCL [Desyrel] 50 - 150 mg PO HS PRN PRN Reason: Insomnia Ibuprofen [Motrin Ib] 600 mg PO Q6H PRN PRN Reason: Pain Chlorpheniramine Maleate [Chlor-Trimeton] 4 mg PO Q4H PRN PRN Reason: Allergy Symptoms cloNIDine HCL [Catapres] 0.1 mg PO Q4H PRN PRN Reason: Anxiety Nitroglycerin Sl Tabs [Nitrostat] 0.4 mg SUBLINGUAL Q5M PRN PRN Reason: Chest Pain Discontinued Aspirin 325 mg PO ONCE Discharge Medication List Acetaminophen Tab [Tylenol] 650 mg PO Q4H PRN 05/13/23 [History] Calcium/Magnesium/Zinc/Vitamin D 334/134/5mg 1 tab PO TID PRN 05/13/23 [History] Chlorpheniramine Maleate [Chlor-Trimeton] 4 mg PO Q4H PRN 05/13/23 [History] Hyoscyamine Sulfate [Levsin] 0.125 mg PO QID PRN 05/13/23 [History] Ibuprofen [Motrin Ib] 600 mg PO Q6H PRN 05/13/23 [History] Loperamide HCl [Loperamide] 4 mg PO QID PRN 05/13/23 [History] Multivitamins, Thera [Multivitamin (formulary)] 1 tab PO DAILY 05/13/23 [History] Thiamine [Vitamin B-1] 100 mg PO DAILY 05/13/23 [History] cloNIDine HCL [Catapres] 0.1 mg PO Q4H PRN 05/13/23 [History] ondansetron HCL [Zofran] 8 mg PO Q6H PRN 05/13/23 [History] traZODone HCL [Desyrel] 50 - 150 mg PO HS PRN 05/13/23 [History] Nitroglycerin Sl Tabs [Nitrostat] 0.4 mg SUBLINGUAL Q5M PRN 05/18/23 [History] ALPRAZolam [Xanax] 0.25 mg PO TID PRN #3 tab 05/21/23 [Rx] Amoxic-Pot Clav 875-125Mg [Augmentin 875-125] 1 tab PO Q12HR 14 Days #28 tab 05/21/23 [Rx] Budesonide-Formot 160-4.5 Mcg [Symbicort 160-4.5 Mcg Inhaler] 2 puff INHALATION RT-BID 30 Days #1 each 05/21/23 [Rx] Ipratropium/Albuter 20-100Mcg [Combivent Respimat 20-100Mcg Inhaler] 1 puff INHALATION BID 30 Days #4 gm 05/21/23 [Rx] Metoclopramide HCl [Reglan] 5 mg PO TID PRN #20 tablet 05/21/23 [Rx] Nicotine 21Mg/24Hr Patch [Habitrol] 1 patch TRANSDERM DAILY #30 patch 05/21/23 [Rx] Follow up Appointment(s)/Referral(s): [facility] [Outside] - As Needed Devika Mcqueen MD [STAFF PHYSICIAN] - 1 Week Patient Instructions/Handouts: Chest Pain (DC) Activity/Diet/Wound Care/Special Instructions: patient is returning to [facility] as tolerated continue antibiotic until finished follow up with cardiology and primary care provider on discharge from rehab Discharge Disposition: OTHER INSTITUTION NOT DEFINED
== END 2023-05-21 16:05 | disposition other institution (70) | DRG 139 ==
LOC: EC 20:32 → 6NMEDSUR 05-18 01:02 → OBSVTOIN 05-19 12:44
PROVIDERS: ADMIT Internal Medicine; ATTEND Internal Medicine
DX: J18.9 Pneumonia, unspecified organism (principal); K85.90 Acute pancreatitis without necrosis or infection, unspecified; R07.89 Other chest pain; E44.0 Moderate protein-calorie malnutrition; J44.0 Chronic obstructive pulmonary disease with (acute) lower respiratory infection; J69.0 Pneumonitis due to inhalation of food and vomit; R19.7 Diarrhea, unspecified; F17.210 Nicotine dependence, cigarettes, uncomplicated; F11.10 Opioid abuse, uncomplicated; Z68.1 Body mass index [BMI] 19.9 or less, adult; I10 Essential (primary) hypertension; Z90.49 Acquired absence of other specified parts of digestive tract
CPT/HCPCS: 36415; 71046; 74177; 80048; 80053; 80061; 80306; 82150; 83690; 83735; 83880; 84145; 84484; 85025; 85610; 85652; 85730; 86140; 87040; 87635; 87636; 93005; 93308; 94640; 94760; 96374; 96375; 99285